=== PATIENT | female | born 1970 | race Caucasian/White ===

== ENCOUNTER 2017-02-08 17:10 | Emergency (ER) | payer MEDICAID ==
--- NOTE | 2017-02-08 17:48 | EKG REPORT ---
SEVERITY:- NORMAL ECG - SINUS RHYTHM : Confirmed by: Fritz Tobar 08-Feb-2017 17:48:01
--- NOTE | 2017-02-08 18:19 | ER Document Report ---
ED Medical Screen (RME) - General Chief Complaint: Shortness Of Breath Stated Complaint: SHORTNESS OF BREATH Time Seen by Provider: 02/08/17 18:13 Mode of Arrival: Ambulatory Information source: Patient TRAVEL OUTSIDE OF THE [place] IN LAST 30 DAYS: No - HPI Patient complains to provider of: Shortness of breath, dyspnea on exertion, congestion, chest pain Onset: Other - Saturday Quality of pain: Achy Severity: Moderate Pain Level: 3 Associated Symptoms: Body/muscle aches, Chest pain, Headache, Shortness of breath Exacerbated by: Denies Relieved by: Denies Notes: 02/08/17 18:18 Patient is a 46-year-old female with history of asthma COPD, restless leg syndrome, vertigo and depression anxiety, who presents to the emergency room complaining of headache, congestion, facial pain and swelling, dyspnea on exertion, patient denies a cough, no fever - Related Data Allergies/Adverse Reactions: clarithromycin [From Biaxin] Allergy (Mild, Verified 02/08/17 17:14) Generalized rash Penicillins Allergy (Mild, Verified 02/08/17 17:14) amoxicillin [From Augmentin] Adverse Reaction (Mild, Verified 02/08/17 17:14) clavulanic acid [From Augmentin] Adverse Reaction (Mild, Verified 02/08/17 17:14 ) Past Medical History - Social History Chew tobacco use (# tins/day): No Frequency of alcohol use: None Drug Abuse: None - Past Medical History Cardiac Medical History: Denies: Hx Coronary Artery Disease, Hx Heart Attack, Hx Hypertension Pulmonary Medical History: Reports: Hx Asthma, Hx Bronchitis, Hx COPD Denies: Hx Pneumonia Neurological Medical History: Denies: Hx Cerebrovascular Accident, Hx Seizures Endocrine Medical History: Reports: Hx Diabetes Mellitus Type 2 Renal/ Medical History: Denies: Hx Peritoneal Dialysis GI Medical History: Reports: Hx Gastroesophageal Reflux Disease Musculoskeltal Medical History: Denies Hx Arthritis, Reports Hx Musculoskeletal Trauma Psychiatric Medical History: Reports: Hx Anxiety, Hx Depression, Hx Post Traumatic Stress Disorder Past Surgical History: Reports: Hx Cardiac Catheterization - 01/17/2017, Hx Section, Hx Cholecystectomy, Hx Orthopedic Surgery - LEFT SHOULDER - Immunizations Immunizations up to date: No Hx Diphtheria, Pertussis, Tetanus Vaccination: Yes Physical Exam - Vital signs Vitals: Temp Pulse Resp BP Pulse Ox 97.4 F 89 22 H 147/76 H 94 02/08/17 17:15 02/08/17 17:15 02/08/17 17:15 02/08/17 17:15 02/08/17 17:15 Course - Vital Signs Vital signs: Temp Pulse Resp BP Pulse Ox 97.4 F 89 22 H 147/76 H 94 02/08/17 17:15 02/08/17 17:15 02/08/17 17:15 02/08/17 17:15 02/08/17 17:15
[2017-02-08 18:49] LABS: ABSOLUTE LYMPHOCYTES (AUTO) 1.1 10^3/uL (0.5-4.7); ABSOLUTE MONOCYTES (AUTO) 0.4 10^3/uL (0.1-1.4); ABSOLUTE NEUT (AUTO) 8.3 10^3/uL (1.7-8.2); BASOPHILS % (AUTO) 0.4 % (0-2); EOSINOPHILS % (AUTO) 0.2 % (0-6); HEMATOCRIT 40.7 % (36.0-47.0); HEMOGLOBIN 12.6 g/dL (12.0-15.5); HGB HCT DIFFERENCE -2.9; LYMPHOCYTES % (AUTO) 11.1 % (13-45); MEAN CORPUSCULAR HEMOGLOBIN 26.5 pg (27.0-33.4); MEAN CORPUSCULAR HGB CONC 30.9 g/dL (32.0-36.0); MEAN CORPUSCULAR VOLUME 86 fl (80-97); MONOCYTES % (AUTO) 4.2 % (3-13); RED BLOOD COUNT 4.75 10^6/uL (3.72-5.28); RED CELL DISTRIBUTION WIDTH 15.3 % (11.5-14.0); SEGMENTED NEUTROPHILS % (AUTO) 84.1 % (42-78); WHITE BLOOD COUNT 9.9 10^3/uL (4.0-10.5)
[2017-02-08 19:08] LABS: ALANINE AMINOTRANSFERASE 26 U/L (9-52); ALKALINE PHOSPHATASE 101 U/L (38-126); ANION GAP 12 (5-19); ASPARTATE AMINO TRANSFERASE 16 U/L (14-36); BILIRUBIN,DIRECT 0.3 mg/dL (0.0-0.4); BILIRUBIN,TOTAL 0.5 mg/dL (0.2-1.3); BLOOD UREA NITROGEN 12 mg/dL (7-20); CALCIUM 9.4 mg/dL (8.4-10.2); CARBON DIOXIDE 25 mmol/L (22-30); CHLORIDE 103 mmol/L (98-107); CREATINE KINASE 37 U/L (30-135); CREATININE RESULT 0.99 mg/dL (0.52-1.25); GLUCOSE 133 mg/dL (75-110); POTASSIUM 5.1 mmol/L (3.6-5.0); SODIUM 139.8 mmol/L (137-145); TOTAL PROTEIN 7.3 g/dL (6.3-8.2)
[2017-02-08 19:18] VITALS: BP 128/86
[2017-02-08 19:20] LABS: CREATINE KINASE MB < 0.22 ng/mL (<4.55); TROPONIN I < 0.012 ng/mL
[2017-02-08] MEDS ORDERED: LORATADINE 10 MG TABLET PO ONE (19:39)
--- NOTE | 2017-02-08 19:39 | ER Document Report ---
ED General - General Chief Complaint: Shortness Of Breath Stated Complaint: SHORTNESS OF BREATH Time Seen by Provider: 02/08/17 18:13 Mode of Arrival: Ambulatory Notes: Patient is a 46-year-old female with a past medical history of morbid obesity, COPD, hypertension, hyperlipidemia, who presents with several weeks of sinus pressure as well as intermittent shortness of breath. Notes that exertion worsens her shortness of breath. Resting improves her shortness of breath. Symptoms have been relatively unchanged in terms of her shortness of breath over the past several months. Her main reason for visiting the emergency department today is that she has had a severe, constant, throbbing pain to her bilateral sinuses for the past 1 week. Nothing improves or worsens the pain. She has not seen a primary care doctor regarding this concern. Notes a history of similar symptoms in the past secondary to viral illnesses. She denies any chest pain, vomiting, diaphoresis or syncope TRAVEL OUTSIDE OF THE [place] IN LAST 30 DAYS: No - Related Data Allergies/Adverse Reactions: clarithromycin [From Biaxin] Allergy (Mild, Verified 02/08/17 17:14) Generalized rash Penicillins Allergy (Mild, Verified 02/08/17 17:14) amoxicillin [From Augmentin] Adverse Reaction (Mild, Verified 02/08/17 17:14) clavulanic acid [From Augmentin] Adverse Reaction (Mild, Verified 02/08/17 17:14 ) Past Medical History - General Information source: Patient - Social History Smoking Status: Former Smoker Chew tobacco use (# tins/day): No Frequency of alcohol use: None Drug Abuse: None Lives with: Spouse/Significant other Family History: Arthritis, CAD, CVA, DM, Hyperlipidemia, Hypertension, Malignancy, Thyroid Disfunction Patient has suicidal ideation: No Patient has homicidal ideation: No - Past Medical History Cardiac Medical History: Denies: Hx Coronary Artery Disease, Hx Heart Attack, Hx Hypertension Pulmonary Medical History: Reports: Hx Asthma, Hx Bronchitis, Hx COPD Denies: Hx Pneumonia Neurological Medical History: Denies: Hx Cerebrovascular Accident, Hx Seizures Endocrine Medical History: Reports: Hx Diabetes Mellitus Type 2 Renal/ Medical History: Denies: Hx Peritoneal Dialysis GI Medical History: Reports: Hx Gastroesophageal Reflux Disease Musculoskeltal Medical History: Denies Hx Arthritis, Reports Hx Musculoskeletal Trauma Psychiatric Medical History: Reports: Hx Anxiety, Hx Depression, Hx Post Traumatic Stress Disorder Past Surgical History: Reports: Hx Cardiac Catheterization - 01/17/2017, Hx Section, Hx Cholecystectomy, Hx Orthopedic Surgery - LEFT SHOULDER - Immunizations Immunizations up to date: No Hx Diphtheria, Pertussis, Tetanus Vaccination: Yes Hx Pneumococcal Vaccination: 09/08/09 Review of Systems - Review of Systems Notes: Constitutional: Negative for fever. HENT: Negative for sore throat. Eyes: Negative for visual changes. Cardiovascular: Negative for chest pain. Respiratory: Positive for shortness of breath. Gastrointestinal: Negative for abdominal pain, vomiting or diarrhea. Genitourinary: Negative for dysuria. Musculoskeletal: Negative for back pain. Skin: Negative for rash. Neurological: Negative for headaches, weakness or numbness. 10 point ROS negative except as marked above and in HPI. Physical Exam - Vital signs Vitals: Temp Pulse Resp BP Pulse Ox 97.4 F 89 22 H 147/76 H 94 02/08/17 17:15 02/08/17 17:15 02/08/17 17:15 02/08/17 17:15 02/08/17 17:15 Interpretation: Normal Notes: PHYSICAL EXAMINATION: GENERAL: Well-appearing, well-nourished and in no acute distress. HEAD: Atraumatic, normocephalic. EYES: Pupils equal round and reactive to light, extraocular movements intact, sclera anicteric, conjunctiva are normal. ENT: nares patent, oropharynx clear without exudates. Moist mucous membranes. NECK: Normal range of motion, supple without lymphadenopathy LUNGS: Breath sounds clear to auscultation bilaterally and equal. No wheezes rales or rhonchi. HEART: Regular rate and rhythm without murmurs ABDOMEN: Soft, nontender, normoactive bowel sounds. No guarding, no rebound. No masses appreciated. EXTREMITIES: Normal range of motion, no pitting or edema. No cyanosis. NEUROLOGICAL: No focal neurological deficits. Moves all extremities spontaneously and on command. PSYCH: Normal mood, normal affect. SKIN: Warm, Dry, normal turgor, no rashes or lesions noted. Course - Re-evaluation Re-evalutation: 02/08/17 19:37 Patient presents with 1 week of sinus pressure and shortness of breath. And appears most consistent with likely allergic rhinitis with associated sinus discomfort. She denies any active shortness of breath at time of my assessment. No dyspnea, tachycardia or hypoxemia. Breath sounds are clear. Chest x-ray without evidence of pneumothorax or acute infiltrate. She denies any chest pain and just had a heart catheterization on 17 January which was noted to be completely normal. Troponin negative as is a BMP. Patient has tolerated oral intake without difficulty. Patient was not noted to be in distress at any point during their ER visit. At this time, based on the reassuring evaluation, I do not suspect an acute MN, pulmonary embolus, aortic dissection, acute intra- abdominal pathology, stroke, or sepsis. Will discharge with return precautions and follow-up recommendations. Verbal discharge instructions given a the bedside and opportunity for questions given. Medication warnings reviewed. Patient is in agreement with this plan and has verbalized understanding of return precautions and the need for primary care follow-up in the next 24-72 hours. - Vital Signs Vital signs: Temp Pulse Resp BP Pulse Ox 97.4 F 89 13 128/86 H 94 02/08/17 17:15 02/08/17 17:15 02/08/17 19:45 02/08/17 19:00 02/08/17 19:45 - Laboratory Result Diagrams: 02/08/17 18:40 02/08/17 18:40 Laboratory results interpreted by me: 02/08/17 02/08/17 18:40 18:40 MCH 26.5 L MCHC 30.9 L RDW 15.3 H Seg Neutrophils % 84.1 H Lymphocytes % 11.1 L Absolute Neutrophils 8.3 H Potassium 5.1 H Glucose 133 H - Diagnostic Test Radiology reviewed: Image reviewed, Reports reviewed Radiology results interpreted by me: 02/08/17 19:39 Chest x-ray: No acute infiltrate or pneumothorax - EKG Interpretation by Me Additional EKG results interpreted by me: 02/08/17 19:40 Sinus rhythm. Rate 82. No ST elevations or depressions. QTC is 453 Discharge - Discharge Clinical Impression: Super obese, Shortness of breath, Allergic sinusitis Condition: Good Disposition: HOME, SELF-CARE Additional Instructions: Please start taking loratadine 10 mg daily which will help with your sinus pressure. Your labs and chest x-ray today are normal. Please return to the emergency room immediately if you experience any concerning symptoms including high fevers, severe headache, chest pain, difficulty breathing, abdominal pain, slurred speech, numbness or weakness in your arms or legs, or any other symptom that concerns you. Referrals: REAGAN HARRIS MD [Primary Care Provider] - Follow up as needed
--- NOTE | 2017-02-08 19:41 | RADIOLOGY REPORT (SQ) ---
EXAM DESCRIPTION: CHEST PA/LAT COMPLETED DATE/TIME: 02/08/2017 7:24 pm REASON FOR STUDY: alvarenga COMPARISON: None. EXAM PARAMETERS: NUMBER OF VIEWS: two views TECHNIQUE: Digital Frontal and Lateral radiographic views of the chest acquired. RADIATION DOSE: NA LIMITATIONS: none FINDINGS: LUNGS AND PLEURA: No consolidation. Calcified granulomas are again noted. No pneumothora x. Small bilateral pleural effusions. MEDIASTINUM AND HILAR STRUCTURES: Stable. HEART AND VASCULAR STRUCTURES: Stable. BONES: No acute findings. HARDWARE: None in the chest. OTHER: No other significant finding. IMPRESSION: Small bilateral pleural effusions. No consolidation. TECHNICAL DOCUMENTATION: JOB ID: [id number] [employer]- All Rights Reserved
== END 2017-02-08 20:00 | disposition home or self-care (01) ==
LOC: ER 17:10
DX: E66.01 Morbid (severe) obesity due to excess calories (principal); R06.02 Shortness of breath; J30.9 Allergic rhinitis, unspecified; J44.9 Chronic obstructive pulmonary disease, unspecified; I10 Essential (primary) hypertension; E78.5 Hyperlipidemia, unspecified; E11.9 Type 2 diabetes mellitus without complications; K21.9 Gastro-esophageal reflux disease without esophagitis; Z88.0 Allergy status to penicillin; Z87.891 Personal history of nicotine dependence; Z90.49 Acquired absence of other specified parts of digestive tract
CPT/HCPCS: 93005; 99285; 36415; 82553; 82550; 85025; 80053; 84484; 83880; 71020; 93010; J3490

== ENCOUNTER 2017-05-05 21:03 | Emergency (ER) | payer MEDICAID ==
--- NOTE | 2017-05-05 22:37 | ER Document Report ---
ED General - General Chief Complaint: Back Injury Stated Complaint: ANKLE INJURY Time Seen by Provider: 05/05/17 22:22 Information source: Patient Notes: Patient is a 46-year-old female who states around 4 days ago she was walking outside her front door when she "twisted" her left ankle and knee and believe she strained her left back. She did not fall to the ground. She states her ankle was swollen and is slightly improved. She states most of her pain is actually to the distal Achilles. She denies however any heel pain. TRAVEL OUTSIDE OF THE [place] IN LAST 30 DAYS: No - HPI Onset: Other - See above Onset/Duration: Sudden Quality of pain: Achy Severity: Mild Pain Level: 1 Associated symptoms: Other - See above Exacerbated by: Movement, Walking Relieved by: Remaining still - Related Data Allergies/Adverse Reactions: clarithromycin [From Biaxin] Allergy (Mild, Verified 05/05/17 21:07) Generalized rash Penicillins Allergy (Mild, Verified 05/05/17 21:07) amoxicillin [From Augmentin] Adverse Reaction (Mild, Verified 05/05/17 21:07) clavulanic acid [From Augmentin] Adverse Reaction (Mild, Verified 05/05/17 21:07 ) Past Medical History - General Information source: Patient - Social History Smoking Status: Unknown if Ever Smoked Cigarette use (# per day): No Chew tobacco use (# tins/day): No Smoking Education Provided: No Frequency of alcohol use: None Family History: Arthritis, CAD, CVA, DM, Hyperlipidemia, Hypertension, Malignancy, Thyroid Disfunction Patient has suicidal ideation: No Patient has homicidal ideation: No - Past Medical History Cardiac Medical History: Reports: Hx Hypertension Denies: Hx Coronary Artery Disease, Hx Heart Attack Pulmonary Medical History: Reports: Hx Asthma, Hx COPD, Hx Pneumonia Denies: Hx Bronchitis Neurological Medical History: Denies: Hx Cerebrovascular Accident, Hx Seizures Endocrine Medical History: Reports: Hx Diabetes Mellitus Type 2 Renal/ Medical History: Denies: Hx Peritoneal Dialysis GI Medical History: Reports: Hx Gastroesophageal Reflux Disease Musculoskeltal Medical History: Denies Hx Arthritis, Reports Hx Musculoskeletal Trauma Psychiatric Medical History: Reports: Hx Anxiety, Hx Depression, Hx Post Traumatic Stress Disorder Past Surgical History: Reports: Hx Cardiac Catheterization - 01/17/2017, Hx Section, Hx Cholecystectomy, Hx Orthopedic Surgery - LEFT SHOULDER - Immunizations Immunizations up to date: No Hx Diphtheria, Pertussis, Tetanus Vaccination: Yes Hx Pneumococcal Vaccination: 09/08/09 Physical Exam - Vital signs Vitals: Temp Pulse Resp BP Pulse Ox 98.4 F 90 20 164/81 H 96 05/05/17 21:07 05/05/17 21:07 05/05/17 21:07 05/05/17 21:07 05/05/17 21:07 Notes: Reviewed vital signs and nursing note as charted by RN. CONSTITUTIONAL: Alert and oriented and responds appropriately to questions. Well -appearing; well-nourished HEAD: Normocephalic; atraumatic BACK: The back appears normal and is non-tender to palpation along the midline spine. Patient does have some left lower paraspinal muscular tenderness without any swelling or erythema. Patient is neurovascularly intact distally with 5 out of 5 bilateral leg strength with 2+ patellar reflexes. EXT: Patient has some mild tenderness and swelling to the lateral malleolus of the left ankle. There is no foot or heel tenderness or swelling. Patient also has some mild tenderness to left lateral knee without any obvious deformity, swelling, or erythema. Patient is able to fully flex and extend her knee. I had the patient lay on her stomach and squeezed her left heel and I do see some foot flexion. Patient does have some tenderness to the distal/mid aspect of the Achilles. There is no obvious palpable deformity. Course - Re-evaluation Re-evalutation: 05/05/17 22:34 Given the above history and physical examination or x-ray of the patient's left knee and ankle. If no apparent fractures are found, I will most likely splint the patient's left lower extremity with slight foot flexion as I am concerned about a possible partial Achilles tear. 05/05/17 23:45 X-rays of the ankle, and knee show no acute fractures. No change in examination. - Vital Signs Vital signs: Temp Pulse Resp BP Pulse Ox 98.4 F 90 20 164/81 H 96 05/05/17 21:07 05/05/17 21:07 05/05/17 21:07 05/05/17 21:07 05/05/17 21:07 Discharge - Discharge Clinical Impression: Left ankle strain Qualifiers: Encounter type: initial encounter Qualified Code(s): S96.912A - Strain of unspecified muscle and tendon at ankle and foot level, left foot, initial encounter Strain of left knee Qualifiers: Encounter type: initial encounter Qualified Code(s): S86.912A - Strain of unspecified muscle(s) and tendon(s) at lower leg level, left leg, initial encounter Injury of left Achilles tendon Qualifiers: Encounter type: initial encounter Qualified Code(s): S86.002A - Unspecified injury of left Achilles tendon, initial encounter Condition: Good Disposition: HOME, SELF-CARE Additional Instructions: Come back immediately with any increased pain, swelling, weakness or numbness, or discoloration. Please make sure that she follow-up with orthopedics as we have discussed and provided. Referrals: DELMY VARGHESE MD [ACTIVE STAFF] - Follow up as needed
--- NOTE | 2017-05-05 23:19 | RADIOLOGY REPORT (SQ) ---
EXAM DESCRIPTION: ANKLE LEFT COMPLETE COMPLETED DATE/TIME: 05/05/2017 11:10 pm REASON FOR STUDY: 10, fall/twisting knee and ankle COMPARISON: None. NUMBER OF VIEWS: Three views. TECHNIQUE: AP, lateral, and oblique radiographic images acquired of the left ankle. LIMITATIONS: None. FINDINGS: MINERALIZATION: Normal. BONES: No acute fracture or dislocation. No worrisome bone lesions. JOINTS: No effusions. SOFT TISSUES: Diffuse soft tissue swelling. No foreign body. OTHER: No other significant finding. IMPRESSION: No fracture identified. TECHNICAL DOCUMENTATION: JOB ID: [id number] [employer]- All Rights Reserved
--- NOTE | 2017-05-05 23:26 | RADIOLOGY REPORT (SQ) ---
EXAM DESCRIPTION: KNEE LEFT 4 VIEW COMPLETED DATE/TIME: 05/05/2017 11:10 pm REASON FOR STUDY: 10, fall/twisting knee and ankle COMPARISON: None. NUMBER OF VIEWS: Four views. TECHNIQUE: AP, lateral, and both oblique radiographic images acquired of the left knee. LIMITATIONS: None. FINDINGS: MINERALIZATION: Normal. BONES: No acute fracture or dislocation. No worrisome bone lesions. JOINT: No effusion. SOFT TISSUES: No soft tissue swelling. No radio-opaque foreign body. OTHER: No other significant finding. IMPRESSION: No fracture. TECHNICAL DOCUMENTATION: JOB ID: [id number]- All Rights Reserved
[2017-05-06 00:47] VITALS: BP 135/79
== END 2017-05-06 00:48 | disposition home or self-care (01) ==
LOC: ER 21:03
DX: S96.912A Strain of unspecified muscle and tendon at ankle and foot level, left foot, initial encounter (principal); S86.912A Strain of unspecified muscle(s) and tendon(s) at lower leg level, left leg, initial encounter; S86.002A Unspecified injury of left Achilles tendon, initial encounter; X50.0XXA Overexertion from strenuous movement or load, initial encounter; Y92.008 Other place in unspecified non-institutional (private) residence as the place of occurrence of the external cause; I10 Essential (primary) hypertension; E11.9 Type 2 diabetes mellitus without complications; K21.9 Gastro-esophageal reflux disease without esophagitis; Z88.0 Allergy status to penicillin; Z88.3 Allergy status to other anti-infective agents; Z90.49 Acquired absence of other specified parts of digestive tract
CPT/HCPCS: 99283

== ENCOUNTER 2017-05-22 18:36 | Emergency (ER) | payer MEDICAID ==
--- NOTE | 2017-05-22 19:02 | ER Document Report ---
ED Medical Screen (RME) - General Chief Complaint: Shortness Of Breath Stated Complaint: SHORTNESS OF BREATH Time Seen by Provider: 05/22/17 19:00 Notes: Patient states that she also has cough congestion and shortness of breath. She states that she has been diagnosed with sinusitis and pneumonia within the last month. She has been on a Z-Malick and azithromycin and both times has felt that she has gotten better but now symptoms have returned. TRAVEL OUTSIDE OF THE [place] IN LAST 30 DAYS: No - Related Data Allergies/Adverse Reactions: clarithromycin [From Biaxin] Allergy (Mild, Verified 05/22/17 18:40) Generalized rash Penicillins Allergy (Mild, Verified 05/22/17 18:40) amoxicillin [From Augmentin] Adverse Reaction (Mild, Verified 05/22/17 18:40) clavulanic acid [From Augmentin] Adverse Reaction (Mild, Verified 05/22/17 18:40 ) Past Medical History - Social History Chew tobacco use (# tins/day): No Frequency of alcohol use: None Drug Abuse: None - Past Medical History Cardiac Medical History: Reports: Hx Hypertension Denies: Hx Coronary Artery Disease, Hx Heart Attack Pulmonary Medical History: Reports: Hx Asthma, Hx COPD, Hx Pneumonia Denies: Hx Bronchitis Neurological Medical History: Denies: Hx Cerebrovascular Accident, Hx Seizures Endocrine Medical History: Reports: Hx Diabetes Mellitus Type 2 Renal/ Medical History: Denies: Hx Peritoneal Dialysis GI Medical History: Reports: Hx Gastroesophageal Reflux Disease Musculoskeltal Medical History: Denies Hx Arthritis, Reports Hx Musculoskeletal Trauma Psychiatric Medical History: Reports: Hx Anxiety, Hx Depression, Hx Post Traumatic Stress Disorder Past Surgical History: Reports: Hx Cardiac Catheterization - 01/17/2017, Hx Section, Hx Cholecystectomy, Hx Orthopedic Surgery - LEFT SHOULDER - Immunizations Immunizations up to date: No Hx Diphtheria, Pertussis, Tetanus Vaccination: Yes Physical Exam - Vital signs Vitals: Temp Pulse Resp BP Pulse Ox 97.8 F 97 22 H 151/92 H 95 05/22/17 18:42 05/22/17 18:42 05/22/17 18:42 05/22/17 18:42 05/22/17 18:42 Course - Vital Signs Vital signs: Temp Pulse Resp BP Pulse Ox 97.8 F 97 22 H 151/92 H 95 05/22/17 18:42 05/22/17 18:42 05/22/17 18:42 05/22/17 18:42 05/22/17 18:42
--- NOTE | 2017-05-22 19:24 | RADIOLOGY REPORT (SQ) ---
EXAM DESCRIPTION: CHEST PA/LAT COMPLETED DATE/TIME: 05/22/2017 7:16 pm REASON FOR STUDY: cough/congestion COMPARISON: 02/08/2017 EXAM PARAMETERS: NUMBER OF VIEWS: two views TECHNIQUE: Digital Frontal and Lateral radiographic views of the chest acquired. RADIATION DOSE: NA LIMITATIONS: none FINDINGS: LUNGS AND PLEURA: No opacities, masses or pneumothorax. No pleural effusion. MEDIASTINUM AND HILAR STRUCTURES: No masses or contour abnormalities. HEART AND VASCULAR STRUCTURES: Heart normal size. No evidence for failure. BONES: No acute findings. HARDWARE: None in the chest. OTHER: No other significant finding. IMPRESSION: NO SIGNIFICANT RADIOGRAPHIC FINDING IN THE CHEST. TECHNICAL DOCUMENTATION: JOB ID: [id number] [employer]- All Rights Reserved
[2017-05-22 20:00] LABS: ABSOLUTE BASOPHILS # (AUTO) 0.1 10^3/uL (0.0-0.2); ABSOLUTE LYMPHOCYTES (AUTO) 1.1 10^3/uL (0.5-4.7); ABSOLUTE MONOCYTES (AUTO) 0.4 10^3/uL (0.1-1.4); BASOPHILS % (AUTO) 0.6 % (0-2); EOSINOPHILS % (AUTO) 0.2 % (0-6); HEMATOCRIT 41.2 % (36.0-47.0); HEMOGLOBIN 13.4 g/dL (12.0-15.5); LYMPHOCYTES % (AUTO) 9.3 % (13-45); MEAN CORPUSCULAR HEMOGLOBIN 26.8 pg (27.0-33.4); MEAN CORPUSCULAR HGB CONC 32.6 g/dL (32.0-36.0); MEAN CORPUSCULAR VOLUME 82 fl (80-97); MONOCYTES % (AUTO) 3.2 % (3-13); RED BLOOD COUNT 5.01 10^6/uL (3.72-5.28); SEGMENTED NEUTROPHILS % (AUTO) 86.7 % (42-78); WHITE BLOOD COUNT 11.5 10^3/uL (4.0-10.5)
[2017-05-22 20:07] LABS: APPEARANCE,URINE SLIGHTLY-CLOUDY; BILIRUBIN,URINE NEGATIVE (NEGATIVE); GLUCOSE, URINE >=500 mg/dL (NEGATIVE); KETONES,URINE NEGATIVE (NEGATIVE); LEUKOCYTE ESTERASE,URINE NEGATIVE (NEGATIVE); NITRITE,URINE NEGATIVE (NEGATIVE); PROTEIN,URINE NEGATIVE (NEGATIVE); URINE SPECIFIC GRAVITY 1.014; UROBILINOGEN,URINE NEGATIVE mg/dL (<2.0)
[2017-05-22 21:06] LABS: ALANINE AMINOTRANSFERASE 32 U/L (9-52); ALBUMIN 3.9 g/dL (3.5-5.0); ALKALINE PHOSPHATASE 91 U/L (38-126); ANION GAP 11 (5-19); ASPARTATE AMINO TRANSFERASE 15 U/L (14-36); BILIRUBIN,DIRECT 0.3 mg/dL (0.0-0.4); BILIRUBIN,TOTAL 0.4 mg/dL (0.2-1.3); BLOOD UREA NITROGEN 9 mg/dL (7-20); CALCIUM 9.5 mg/dL (8.4-10.2); CARBON DIOXIDE 24 mmol/L (22-30); CHLORIDE 102 mmol/L (98-107); CREATININE RESULT 0.83 mg/dL (0.52-1.25); GLUCOSE 134 mg/dL (75-110); POTASSIUM 4.8 mmol/L (3.6-5.0); TOTAL PROTEIN 6.9 g/dL (6.3-8.2)
[2017-05-22] MEDS ORDERED: CIPROFLOXACIN HCL 500 MG TABLET PO ONE (21:53)
--- NOTE | 2017-05-22 21:57 | ER Document Report ---
ED General - General Chief Complaint: Shortness Of Breath Stated Complaint: SHORTNESS OF BREATH Time Seen by Provider: 05/22/17 19:00 Notes: Patient is a 47-year-old female with a past medical history of morbid obesity, sleep apnea, COPD who presents with concerns of difficulty breathing over the last 3 days. She states that she has had bilateral maxillary sinus pressure that is a dull, constant, throbbing pain. States this feels similar when she has had bacterial sinusitis in the past. She has not seen a primary care doctor regarding these concerns. She has been taking all prescribed medications as directed. Denies any tobacco abuse. Her shortness of breath per her report is more "in my chest" that it is based in her sinuses. She however notes that she has not had any improvement with her normal home nebulizer treatments. She has had similar symptoms multiple times in the past including recently earlier this month. She has not any fever or constitutional symptoms. TRAVEL OUTSIDE OF THE [place] IN LAST 30 DAYS: No - Related Data Allergies/Adverse Reactions: clarithromycin [From Biaxin] Allergy (Mild, Verified 05/22/17 18:40) Generalized rash Penicillins Allergy (Mild, Verified 05/22/17 18:40) amoxicillin [From Augmentin] Adverse Reaction (Mild, Verified 05/22/17 18:40) clavulanic acid [From Augmentin] Adverse Reaction (Mild, Verified 05/22/17 18:40 ) Past Medical History - General Information source: Patient - Social History Smoking Status: Former Smoker Chew tobacco use (# tins/day): No Frequency of alcohol use: None Drug Abuse: None Lives with: Family Family History: Arthritis, CAD, CVA, DM, Hyperlipidemia, Hypertension, Malignancy, Thyroid Disfunction - Past Medical History Cardiac Medical History: Reports: Hx Hypertension Denies: Hx Coronary Artery Disease, Hx Heart Attack Pulmonary Medical History: Reports: Hx Asthma, Hx COPD, Hx Pneumonia Denies: Hx Bronchitis Neurological Medical History: Denies: Hx Cerebrovascular Accident, Hx Seizures Endocrine Medical History: Reports: Hx Diabetes Mellitus Type 2 Renal/ Medical History: Denies: Hx Peritoneal Dialysis GI Medical History: Reports: Hx Gastroesophageal Reflux Disease Musculoskeltal Medical History: Denies Hx Arthritis, Reports Hx Musculoskeletal Trauma Psychiatric Medical History: Reports: Hx Anxiety, Hx Depression, Hx Post Traumatic Stress Disorder Past Surgical History: Reports: Hx Cardiac Catheterization - 01/17/2017, Hx Section, Hx Cholecystectomy, Hx Orthopedic Surgery - LEFT SHOULDER - Immunizations Immunizations up to date: No Hx Diphtheria, Pertussis, Tetanus Vaccination: Yes Hx Pneumococcal Vaccination: 09/08/09 Review of Systems - Review of Systems Notes: Constitutional: Negative for fever. HENT: Negative for sore throat. Positive for bilateral maxillary sinus pressure Eyes: Negative for visual changes. Cardiovascular: Negative for chest pain. Respiratory: Positive for shortness of breath. Gastrointestinal: Negative for abdominal pain, vomiting or diarrhea. Genitourinary: Negative for dysuria. Musculoskeletal: Negative for back pain. Skin: Negative for rash. Neurological: Negative for headaches, weakness or numbness. 10 point ROS negative except as marked above and in HPI. Physical Exam - Vital signs Vitals: Temp Pulse Resp BP Pulse Ox 97.8 F 97 22 H 151/92 H 95 05/22/17 18:42 05/22/17 18:42 05/22/17 18:42 05/22/17 18:42 05/22/17 18:42 Interpretation: Hypertensive Notes: PHYSICAL EXAMINATION: GENERAL: Morbidly obese female. Well-appearing, well-nourished and in no acute distress. HEAD: Atraumatic, normocephalic. EYES: Pupils equal round and reactive to light, extraocular movements intact, sclera anicteric, conjunctiva are normal. ENT: nares patent, oropharynx clear without exudates. Moist mucous membranes. Pain on palpation of the bilateral maxillary sinuses. NECK: Normal range of motion, supple without lymphadenopathy LUNGS: Breath sounds clear to auscultation bilaterally and equal. No wheezes rales or rhonchi. HEART: Regular rate and rhythm without murmurs ABDOMEN: Morbidly obese abdomen. Soft, nontender, normoactive bowel sounds. No guarding, no rebound. No masses appreciated. EXTREMITIES: Normal range of motion, no pitting or edema. No cyanosis. NEUROLOGICAL: No focal neurological deficits. Moves all extremities spontaneously and on command. PSYCH: Normal mood, normal affect. SKIN: Warm, Dry, normal turgor, no rashes or lesions noted. Course - Re-evaluation Re-evalutation: 05/22/17 21:54 Patient presents today complaining of bilateral sinus pressure, difficulty breathing, but is in no apparent distress. She is not tachypneic, hypoxic or tachycardic on assessment. She is afebrile. Breath sounds are clear bilaterally. No obvious wheezing or evidence of an acute COPD exacerbation. She does have pain on palpation of the bilateral maxillary sinuses similar to prior presentations. She is scheduled to follow-up with her primary care doctor in the next coming several days. I do not believe the patient requires admission to the hospital. Exact etiology of presentation is likely viral in origin and I have again explained to the patient that this may not respond to antibiotics but again patient is requesting repeat dosing of oral antibiotics. Will proceed per patient's request and asked that she continue to follow-up with her bone drier who typically proceeds in this manner. At this time will discharge with return precautions and follow-up recommendations. Verbal discharge instructions given a the bedside and opportunity for questions given. Medication warnings reviewed. Patient is in agreement with this plan and has verbalized understanding of return precautions and the need for primary care follow-up in the next 24-72 hours. - Vital Signs Vital signs: Temp Pulse Resp BP Pulse Ox 97.6 F 75 19 133/83 H 95 05/22/17 22:41 05/22/17 22:41 05/22/17 22:41 05/22/17 22:41 05/22/17 22:41 - Laboratory Result Diagrams: 05/22/17 19:20 05/22/17 20:25 Laboratory results interpreted by me: 05/22/17 05/22/17 05/22/17 19:20 19:20 20:25 WBC 11.5 H MCH 26.8 L RDW 16.0 H Seg Neutrophils % 86.7 H Lymphocytes % 9.3 L Absolute Neutrophils 10.0 H Glucose 134 H Urine Glucose (UA) >=500 H - Diagnostic Test Radiology reviewed: Image reviewed, Reports reviewed Radiology results interpreted by me: 05/22/17 21:55 Chest x-ray: No acute infiltrate Discharge - Discharge Clinical Impression: Wheezing Sinusitis Qualifiers: Sinusitis location: maxillary Chronicity: acute Recurrence: recurrent Qualified Code(s): J01.01 - Acute recurrent maxillary sinusitis Condition: Good Disposition: HOME, SELF-CARE Additional Instructions: Please follow-up with your primary doctor at your earliest ability. Return if you develop worsening shortness of breath, fever, pass out, develop chest pain, or have any other symptoms that are worrisome to you. Prescriptions: Ciprofloxacin HCl [Cipro 500 mg Tablet] 500 mg PO BID #10 tablet
[2017-05-22 22:42] VITALS: BP 133/83
== END 2017-05-22 22:42 | disposition home or self-care (01) ==
LOC: ER 18:36
DX: J44.9 Chronic obstructive pulmonary disease, unspecified (principal); J01.01 Acute recurrent maxillary sinusitis; I10 Essential (primary) hypertension; Z68.43 Body mass index [BMI] 50.0-59.9, adult; E66.01 Morbid (severe) obesity due to excess calories; Z87.891 Personal history of nicotine dependence; Z88.1 Allergy status to other antibiotic agents; Z88.0 Allergy status to penicillin; Z87.01 Personal history of pneumonia (recurrent)
CPT/HCPCS: 99285; 36415; 85025; 80053; 81001; 71020; J3490

== ENCOUNTER 2017-07-12 17:15 | Emergency (ER) | payer MEDICAID ==
[2017-07-12] MEDS ORDERED: KETOROLAC TROMETHAMINE INJ/PF 30 MG/1 ML SDV IV ONE (19:27)
--- NOTE | 2017-07-12 19:28 | ER Document Report ---
ED Medical Screen (RME) - General TRAVEL OUTSIDE OF THE [place] IN LAST 30 DAYS: No <CHYNA WADDELL - Last Filed: 07/12/17 19:56> <KEITH MOHAN - Last Filed: 07/12/17 20:57> - General Chief Complaint: Abdominal Pain Stated Complaint: ABDOMINAL PAIN Time Seen by Provider: 07/12/17 19:18 Notes: Patient is a 47 year old female with a history of cholecystectomy presents to the emergency department complaining of abdominal pain onset today 15:30. Patinet states she woke up from a nap and started having lower abdominal pain. Patient states she went to the bathroom to have a bowel movement and the pain worsened. Patient describes the pain as "stabbing". Patient states that she feels "clammy" and has diaphoresis. Patient has recently started Metformin. (CHYNA WADDELL) - Related Data Allergies/Adverse Reactions: clarithromycin [From Biaxin] Allergy (Mild, Verified 05/22/17 18:40) Generalized rash Penicillins Allergy (Mild, Verified 05/22/17 18:40) amoxicillin [From Augmentin] Adverse Reaction (Mild, Verified 05/22/17 18:40) clavulanic acid [From Augmentin] Adverse Reaction (Mild, Verified 05/22/17 18:40 ) Past Medical History - General Information source: Patient - Social History Cigarette use (# per day): No Chew tobacco use (# tins/day): No - Past Medical History Cardiac Medical History: Reports: Hx Hypertension Denies: Hx Coronary Artery Disease, Hx Heart Attack Pulmonary Medical History: Reports: Hx Asthma, Hx COPD, Hx Pneumonia Denies: Hx Bronchitis Neurological Medical History: Denies: Hx Cerebrovascular Accident, Hx Seizures Endocrine Medical History: Reports: Hx Diabetes Mellitus Type 2 Renal/ Medical History: Denies: Hx Peritoneal Dialysis GI Medical History: Reports: Hx Gastroesophageal Reflux Disease Musculoskeltal Medical History: Denies Hx Arthritis, Reports Hx Musculoskeletal Trauma Psychiatric Medical History: Reports: Hx Anxiety, Hx Depression, Hx Post Traumatic Stress Disorder Past Surgical History: Reports: Hx Cardiac Catheterization - 01/17/2017, Hx Section, Hx Cholecystectomy, Hx Orthopedic Surgery - LEFT SHOULDER - Immunizations Immunizations up to date: No Hx Diphtheria, Pertussis, Tetanus Vaccination: Yes History of Influenza Vaccine for 05/2017 - 10/2017 Season: No <NADIRACHYNA BRADY - Last Filed: 07/12/17 19:56> Review of Systems - Review of Systems Constitutional: See HPI, Diaphoresis EENT: No symptoms reported Cardiovascular: No symptoms reported Respiratory: No symptoms reported Gastrointestinal: See HPI, Abdominal pain, Nausea Genitourinary: No symptoms reported Female Genitourinary: No symptoms reported Musculoskeletal: No symptoms reported Skin: No symptoms reported Hematologic/Lymphatic: No symptoms reported Neurological/Psychological: No symptoms reported -: Yes All other systems reviewed and negative <NADIRANAEMARTIN - Last Filed: 07/12/17 19:56> Physical Exam - General General appearance: Appears well, Alert In distress: None - HEENT Head: Normocephalic, Atraumatic Pupils: PERRL - Respiratory Respiratory status: No respiratory distress Chest status: Nontender Breath sounds: Normal - Cardiovascular Rhythm: Regular Heart sounds: Normal auscultation Murmur: No Friction rub: No Gallop: None auscultated - Abdominal Inspection: Obese Distension: No distension Bowel sounds: Normal Tenderness: Tender - LLQ tender to palpation Organomegaly: No organomegaly - Extremities General upper extremity: Normal ROM General lower extremity: Normal ROM - Psychological Associated symptoms: Normal affect, Normal mood - Skin Skin Temperature: Warm Skin Moisture: Dry <NADIRANAEMARTIN - Last Filed: 07/12/17 19:56> - Vital signs Vitals: Temp Pulse Resp BP Pulse Ox 97.9 F 89 20 130/64 H 95 07/12/17 17:19 07/12/17 17:19 07/12/17 17:19 07/12/17 17:19 07/12/17 17:19 Course - Laboratory Result Diagrams: 07/12/17 19:44 07/12/17 19:44 <CHYNA WADDELL - Last Filed: 07/12/17 19:56> - Laboratory Result Diagrams: 07/12/17 19:44 07/12/17 19:44 <KEITH MOHAN - Last Filed: 07/12/17 20:57> - Vital Signs Vital signs: Temp Pulse Resp BP Pulse Ox 97.9 F 89 20 130/64 H 95 07/12/17 17:19 07/12/17 17:19 07/12/17 17:19 07/12/17 17:19 07/12/17 17:19 - Laboratory Laboratory results interpreted by me: 07/12/17 07/12/17 19:44 19:44 WBC 15.4 H MCH 26.4 L RDW 16.5 H Seg Neutrophils % 80.6 H Lymphocytes % 12.6 L Absolute Neutrophils 12.4 H Urine Protein 100 H Urine Glucose (UA) 50 H Urine Blood LARGE H Ur Leukocyte Esterase SMALL H Scribe Documentation - Scribe Written by Scribe:: Uzma Gordon, 07/12/2017 20:05 acting as scribe for :: Liliana <CHYNA WADDELL - Last Filed: 07/12/17 19:56>
[2017-07-12 20:17] LABS: ABSOLUTE BASOPHILS # (AUTO) 0.1 10^3/uL (0.0-0.2); ABSOLUTE EOSINOPHILS # (AUTO) 0.1 10^3/uL (0.0-0.6); ABSOLUTE LYMPHOCYTES (AUTO) 1.9 10^3/uL (0.5-4.7); ABSOLUTE MONOCYTES (AUTO) 0.8 10^3/uL (0.1-1.4); ABSOLUTE NEUT (AUTO) 12.4 10^3/uL (1.7-8.2); BASOPHILS % (AUTO) 0.4 % (0-2); EOSINOPHILS % (AUTO) 0.9 % (0-6); HEMATOCRIT 38.7 % (36.0-47.0); HEMOGLOBIN 12.4 g/dL (12.0-15.5); HGB HCT DIFFERENCE -1.5; LYMPHOCYTES % (AUTO) 12.6 % (13-45); MEAN CORPUSCULAR HEMOGLOBIN 26.4 pg (27.0-33.4); MEAN CORPUSCULAR VOLUME 83 fl (80-97); MONOCYTES % (AUTO) 5.5 % (3-13); RED BLOOD COUNT 4.69 10^6/uL (3.72-5.28); RED CELL DISTRIBUTION WIDTH 16.5 % (11.5-14.0); SEGMENTED NEUTROPHILS % (AUTO) 80.6 % (42-78); WHITE BLOOD COUNT 15.4 10^3/uL (4.0-10.5)
[2017-07-12 20:29] LABS: ALANINE AMINOTRANSFERASE 37 U/L (9-52); ALBUMIN 4.2 g/dL (3.5-5.0); ALKALINE PHOSPHATASE 90 U/L (38-126); ANION GAP 18 (5-19); APPEARANCE,URINE SLIGHTLY-CLOUDY; ASPARTATE AMINO TRANSFERASE 16 U/L (14-36); BILIRUBIN,DIRECT 0.3 mg/dL (0.0-0.4); BILIRUBIN,TOTAL 0.4 mg/dL (0.2-1.3); BILIRUBIN,URINE NEGATIVE (NEGATIVE); BLOOD UREA NITROGEN 13 mg/dL (7-20); CALCIUM 9.6 mg/dL (8.4-10.2); CARBON DIOXIDE 22 mmol/L (22-30); CHLORIDE 105 mmol/L (98-107); CREATININE RESULT 0.88 mg/dL (0.52-1.25); GLUCOSE 102 mg/dL (75-110); GLUCOSE, URINE 50 mg/dL (NEGATIVE); KETONES,URINE NEGATIVE (NEGATIVE); LEUKOCYTE ESTERASE,URINE SMALL (NEGATIVE); NITRITE,URINE NEGATIVE (NEGATIVE); PROTEIN,URINE 100 mg/dL (NEGATIVE); SODIUM 144.6 mmol/L (137-145); URINE SPECIFIC GRAVITY 1.028; UROBILINOGEN,URINE NEGATIVE mg/dL (<2.0)
--- NOTE | 2017-07-12 21:08 | RADIOLOGY REPORT (SQ) ---
EXAM DESCRIPTION: CT ABD/PELVIS WITH IV ONLY COMPLETED DATE/TIME: 07/12/2017 8:51 pm REASON FOR STUDY: LLQ abd pain, r/o diverticulitis COMPARISON: None. TECHNIQUE: CT scan of the abdomen and pelvis performed using helical scanning technique with dynamic intravenous contrast injection. No oral contrast. Images reviewed with lung, soft tissue, and bone windows. Reconstructed coronal and sagittal MPR images reviewed. Delayed images for evaluation of the urinary system also acquired. All images stored on PACS. All CT scanners at this facility use dose modulation, iterative reconstruction, and/or weight based d osing when appropriate to reduce radiation dose to as low as reasonably achievable (ALARA). [facility]: Dose Right [facility]: CareDose [facility]: Dose Right [facility]: Teradose 4D [facility]: Sanghvi CONTRAST TYPE AND DOSE: contrast/concentration: Isovue 370.00 mg/ml; Total Contrast Delivered: 100.0 ml; Total Saline Delivered: 72.0 ml RENAL FUNCTION: None required. The patient is less than 50 years old. RADIATION DOSE: Up-to-date CT equipment and radiation dose reduction techniques were employed. CTDIv ol: 21.1 mGy. DLP: 2109 mGy-cm.. LIMITATIONS: None. FINDINGS: LOWER CHEST: No significant findings. No nodules or infiltrates. LIVER: Diffuse hepatic steatosis. No masses. No dilated ducts. SPLEEN: Normal size. No focal lesions. PANCREAS: No masses. No significant calcifications. No adjacent inflammation or peripancreatic fluid collections. Pancreatic duct not dilated. GALLBLADDER: Surgically absent. ADRENAL GLANDS: No significant masses or asymmetry. RIGHT KIDNEY AND URETER: No solid masses. No significant calcifications. No hydronephrosis or hyd roureter. LEFT KIDNEY AND URETER: No solid masses. No significant calcifications. No hydronephrosis or hydr oureter. AORTA AND VESSELS: No aneurysm. No dissection. Renal arteries, SMA, celiac without stenosis. RETROPERITONEUM: No retroperitoneal adenopathy, hemorrhage or masses. BOWEL AND PERITONEAL CAVITY: No masses or inflammatory changes. No free fluid or peritoneal masses. APPENDIX: Normal. PELVIS: No mass. No free fluid. Normal bladder. ABDOMINAL WALL: No masses. No hernias. BONES: No significant or acute findings. OTHER: No other significant finding. IMPRESSION: NO ACUTE INFLAMMATORY CHANGE IDENTIFIED WITHIN THE ABDOMEN OR PELVIS. HEPATIC STEATOSIS. TECHNICAL DOCUMENTATION: JOB ID: [id number] Quality ID # [id number]: Final reports with documentation of one or more dose reduction techniques (e.g., Au tomated exposure control, adjustment of the mA and/or kV according to patient size, use of iterative reconstruction technique) 2010 [employer]- All Rights Reserved
[2017-07-12] MEDS ORDERED: CEFTRIAXONE 1 GM/D5W RTU 1 GM/50 ML RTUPB IV ONE (21:23)
[2017-07-12] MEDS ORDERED: NORMAL SALINE 1000 ML 1,000 ML IV ONE (21:23)
--- NOTE | 2017-07-12 21:28 | ER Document Report ---
ED General - General Chief Complaint: Abdominal Pain Stated Complaint: ABDOMINAL PAIN Time Seen by Provider: 07/12/17 19:18 Notes: Patient is a 47-year-old female who presents with approximately 5 hours of left flank and left lower quadrant abdominal pain. States that the pain was abrupt in onset and has worsened since that time. She does describe a severe, constant , throbbing pain to the left flank. Moving or touching area worsens the pain. She has not tried anything for improvement of the pain. She denies a history of similar symptoms in the past. She does have a surgical history of a cholecystectomy but no additional abdominal surgeries in the past. She denies any fever or constitutional symptoms. She has not seen a primary doctor regarding today's concerns. TRAVEL OUTSIDE OF THE [place] IN LAST 30 DAYS: No - Related Data Allergies/Adverse Reactions: clarithromycin [From Biaxin] Allergy (Mild, Verified 05/22/17 18:40) Generalized rash Penicillins Allergy (Mild, Verified 05/22/17 18:40) amoxicillin [From Augmentin] Adverse Reaction (Mild, Verified 05/22/17 18:40) clavulanic acid [From Augmentin] Adverse Reaction (Mild, Verified 05/22/17 18:40 ) Past Medical History - General Information source: Patient - Social History Smoking Status: Never Smoker Cigarette use (# per day): No Chew tobacco use (# tins/day): No Frequency of alcohol use: None Drug Abuse: None Lives with: Family Family History: Arthritis, CAD, CVA, DM, Hyperlipidemia, Hypertension, Malignancy, Thyroid Disfunction Patient has suicidal ideation: No Patient has homicidal ideation: No - Past Medical History Cardiac Medical History: Reports: Hx Hypertension Denies: Hx Coronary Artery Disease, Hx Heart Attack Pulmonary Medical History: Reports: Hx Asthma, Hx COPD, Hx Pneumonia Denies: Hx Bronchitis Neurological Medical History: Denies: Hx Cerebrovascular Accident, Hx Seizures Endocrine Medical History: Reports: Hx Diabetes Mellitus Type 2 Renal/ Medical History: Denies: Hx Peritoneal Dialysis GI Medical History: Reports: Hx Gastroesophageal Reflux Disease Musculoskeltal Medical History: Denies Hx Arthritis, Reports Hx Musculoskeletal Trauma Psychiatric Medical History: Reports: Hx Anxiety, Hx Depression, Hx Post Traumatic Stress Disorder Past Surgical History: Reports: Hx Cardiac Catheterization - 01/17/2017, Hx Section, Hx Cholecystectomy, Hx Orthopedic Surgery - LEFT SHOULDER - Immunizations Immunizations up to date: No Hx Diphtheria, Pertussis, Tetanus Vaccination: Yes Hx Pneumococcal Vaccination: 09/08/09 Review of Systems - Review of Systems Notes: Constitutional: Negative for fever. HENT: Negative for sore throat. Eyes: Negative for visual changes. Cardiovascular: Negative for chest pain. Respiratory: Negative for shortness of breath. Gastrointestinal: Positive for abdominal pain nausea Genitourinary: Positive for dysuria. Musculoskeletal: Negative for back pain. Skin: Negative for rash. Neurological: Negative for headaches, weakness or numbness. 10 point ROS negative except as marked above and in HPI. Physical Exam - Vital signs Vitals: Temp Pulse Resp BP Pulse Ox 97.9 F 89 20 130/64 H 95 07/12/17 17:19 07/12/17 17:19 07/12/17 17:19 07/12/17 17:19 07/12/17 17:19 Interpretation: Normal Notes: PHYSICAL EXAMINATION: GENERAL: Well-appearing, well-nourished and in no acute distress. HEAD: Atraumatic, normocephalic. EYES: Pupils equal round and reactive to light, extraocular movements intact, sclera anicteric, conjunctiva are normal. ENT: nares patent, oropharynx clear without exudates. Moderately dry mucous membranes. NECK: Normal range of motion, supple without lymphadenopathy LUNGS: Breath sounds clear to auscultation bilaterally and equal. No wheezes rales or rhonchi. HEART: Regular rate and rhythm without murmurs ABDOMEN: Soft, focal tenderness in the left lower quadrant without rebound or guarding. Exquisite tenderness on palpation of the left CVA. EXTREMITIES: Normal range of motion, no pitting or edema. No cyanosis. NEUROLOGICAL: No focal neurological deficits. Moves all extremities spontaneously and on command. PSYCH: Normal mood, normal affect. SKIN: Warm, Dry, normal turgor, no rashes or lesions noted. Course - Re-evaluation Re-evalutation: 07/12/17 21:25 Patient presents with acute onset of left lower abdominal pain as well as left flank pain, found to have pyelonephritis on her urinalysis. CT scan does not demonstrate any evidence of an acute nephrolithiasis suggest an impacted or infected stone. No evidence of acute diverticulitis. The remainder of her abdominal exam is actually quite benign. Laboratories do show a leukocytosis but no evidence of acute kidney injury. She has been able to tolerate oral intake here in the emergency department. She did have resolution of her pain after receiving 15 mg of ketorolac. A liter of IV fluids was administered and she was also given a dose of 1 g of ceftriaxone. She will will be sent home on a 7 day course of cephalexin. A urine culture has been sent. At this time will discharge with return precautions and follow-up recommendations. Verbal discharge instructions given a the bedside and opportunity for questions given. Medication warnings reviewed. Patient is in agreement with this plan and has verbalized understanding of return precautions and the need for primary care follow-up in the next 24-72 hours. - Vital Signs Vital signs: Temp Pulse Resp BP Pulse Ox 98.5 F 94 14 118/62 97 07/12/17 23:35 07/12/17 23:35 07/12/17 23:35 07/12/17 23:35 07/12/17 23:35 - Laboratory Result Diagrams: 07/12/17 19:44 07/12/17 19:44 Laboratory results interpreted by me: 07/12/17 07/12/17 19:44 19:44 WBC 15.4 H MCH 26.4 L RDW 16.5 H Seg Neutrophils % 80.6 H Lymphocytes % 12.6 L Absolute Neutrophils 12.4 H Urine Protein 100 H Urine Glucose (UA) 50 H Urine Blood LARGE H Ur Leukocyte Esterase SMALL H - Diagnostic Test Radiology reviewed: Reports reviewed Discharge - Discharge Clinical Impression: Pyelonephritis, Lower abdominal pain Condition: Good Disposition: HOME, SELF-CARE Additional Instructions: You have been diagnosed with a condition called pyelonephritis which is an infection involving your kidneys and bladder. You have been given a dose of antibiotics here in the emergency department to help begin to treat this infection. Your also being sent home on antibiotics. Please start taking these later on today when you fill the prescription. Complete the course even if you feel better. Please return if you have persistent vomiting, pass out, have worsening pain, become unable to tolerate fluids, or have any other symptoms that are concerning to you. Please follow-up with your primary care physician in the next 24-48 hours. Prescriptions: Cephalexin Monohydrate [Keflex 500 mg Capsule] 500 mg PO Q6H 7 Days capsule Referrals: NATE JASON MD [Primary Care Provider] - Follow up in 3-5 days
[2017-07-12 23:48] VITALS: BP 118/62
== END 2017-07-12 23:40 | disposition home or self-care (01) ==
LOC: ER 17:15
DX: N12 Tubulo-interstitial nephritis, not specified as acute or chronic (principal); R10.32 Left lower quadrant pain
CPT/HCPCS: 99284; 96375; 96365; 36415; 87086; 85025; 80053; 81001; 74177; J1885; J7030; J0696

== ENCOUNTER → 2017-11-20 | Outpatient (CLI) | payer MEDICARE, MEDICAID ==
[2017-11-20 11:33] LABS: ABSOLUTE BASOPHILS # (AUTO) 0.1 10^3/uL (0.0-0.2); ABSOLUTE EOSINOPHILS # (AUTO) 0.2 10^3/uL (0.0-0.6); ABSOLUTE LYMPHOCYTES (AUTO) 1.3 10^3/uL (0.5-4.7); ABSOLUTE MONOCYTES (AUTO) 0.5 10^3/uL (0.1-1.4); ABSOLUTE NEUT (AUTO) 6.7 10^3/uL (1.7-8.2); BASOPHILS % (AUTO) 0.7 % (0-2); EOSINOPHILS % (AUTO) 1.8 % (0-6); HEMATOCRIT 36.8 % (36.0-47.0); HEMOGLOBIN 11.8 g/dL (12.0-15.5); LYMPHOCYTES % (AUTO) 14.5 % (13-45); MEAN CORPUSCULAR HEMOGLOBIN 25.7 pg (27.0-33.4); MEAN CORPUSCULAR HGB CONC 31.9 g/dL (32.0-36.0); MEAN CORPUSCULAR VOLUME 81 fl (80-97); PLATELET COUNT 339 10^3/uL (150-450); RED BLOOD COUNT 4.57 10^6/uL (3.72-5.28); RED CELL DISTRIBUTION WIDTH 16.2 % (11.5-14.0); TOTAL CELLS COUNTED % (AUTO) 100 %; WHITE BLOOD COUNT 8.8 10^3/uL (4.0-10.5)
--- NOTE | 2017-11-20 11:33 | RADIOLOGY REPORT (SQ) ---
EXAM DESCRIPTION: CHEST PA/LATERAL COMPLETED DATE/TIME: 11/20/2017 11:00 am REASON FOR STUDY: DYSPNEA, UNSPECIFIED COMPARISON: 05/22/2017 EXAM PARAMETERS: NUMBER OF VIEWS: two views TECHNIQUE: Digital Frontal and Lateral radiographic views of the chest acquired. RADIATION DOSE: NA LIMITATIONS: none FINDINGS: LUNGS AND PLEURA: Calcified granuloma right lung. Linear scarring right lower lobe. No e ffusions. MEDIASTINUM AND HILAR STRUCTURES: No masses or contour abnormalities. HEART AND VASCULAR STRUCTURES: Heart normal size. No evidence for failure. BONES: No acute findings. HARDWARE: None in the chest. OTHER: No other significant finding. IMPRESSION: NO SIGNIFICANT RADIOGRAPHIC FINDING IN THE CHEST. TECHNICAL DOCUMENTATION: JOB ID: [id number] [employer]- All Rights Reserved Reading location - IP/workstation name: [email or web address]
== END ==
LOC: OD 10:28
PROVIDERS: ATTEND Internal Medicine Pulmonary Disease
DX: R06.00 Dyspnea, unspecified (principal)
CPT/HCPCS: 36415; 71046; 85025; 87070; 87205

== ENCOUNTER 2017-12-06 05:52 | Emergency (ER) | payer MEDICARE, MEDICAID ==
[2017-12-06] MEDS ORDERED: METOCLOPRAMIDE HCL INJ/PF 10 MG/2 ML SDV IV ONE (06:20)
--- NOTE | 2017-12-06 07:42 | ER Document Report ---
ED General - General Chief Complaint: Nausea/Vomiting Stated Complaint: NAUSEA/VOMITING Time Seen by Provider: 12/06/17 06:14 Mode of Arrival: Medic Information source: Patient, [facility] Records Notes: 47-year-old female history of asthma presents with complaints nausea vomiting diarrhea since yesterday. Patient has had 5 episodes of vomiting for episodes of diarrhea. Patient notes niece had similar episodes a few days prior. She denies any fevers or chills TRAVEL OUTSIDE OF THE [place] IN LAST 30 DAYS: No - HPI Onset: Yesterday Onset/Duration: Sudden Quality of pain: Cramping Severity: Mild Pain Level: 1 Associated symptoms: Diarrhea, Nausea, Vomiting Exacerbated by: Denies Relieved by: Denies Similar symptoms previously: No Recently seen / treated by doctor: No - Related Data Allergies/Adverse Reactions: clarithromycin [From Biaxin] Allergy (Mild, Verified 05/22/17 18:40) Generalized rash Penicillins Allergy (Mild, Verified 05/22/17 18:40) amoxicillin [From Augmentin] Adverse Reaction (Mild, Verified 05/22/17 18:40) clavulanic acid [From Augmentin] Adverse Reaction (Mild, Verified 05/22/17 18:40 ) Past Medical History - Social History Smoking Status: Never Smoker Cigarette use (# per day): No Chew tobacco use (# tins/day): No Smoking Education Provided: No Family History: Arthritis, CAD, CVA, DM, Hyperlipidemia, Hypertension, Malignancy, Thyroid Disfunction - Past Medical History Cardiac Medical History: Reports: Hx Hypertension Denies: Hx Coronary Artery Disease, Hx Heart Attack Pulmonary Medical History: Reports: Hx Asthma, Hx COPD, Hx Pneumonia Denies: Hx Bronchitis Neurological Medical History: Denies: Hx Cerebrovascular Accident, Hx Seizures Endocrine Medical History: Reports: Hx Diabetes Mellitus Type 2 Renal/ Medical History: Denies: Hx Peritoneal Dialysis GI Medical History: Reports: Hx Gastroesophageal Reflux Disease Musculoskeltal Medical History: Denies Hx Arthritis, Reports Hx Musculoskeletal Trauma Psychiatric Medical History: Reports: Hx Anxiety, Hx Depression, Hx Post Traumatic Stress Disorder Past Surgical History: Reports: Hx Cardiac Catheterization - 01/17/2017, Hx Section, Hx Cholecystectomy, Hx Orthopedic Surgery - LEFT SHOULDER - Immunizations Immunizations up to date: No Hx Diphtheria, Pertussis, Tetanus Vaccination: Yes Hx Pneumococcal Vaccination: 09/08/09 Review of Systems - Review of Systems Notes: REVIEW OF SYSTEMS: CONSTITUTIONAL : Denies fever, chills, or sweats. Denies recent illness. EENT: Denies eye, ear, throat, or mouth pain or symptoms. Denies nasal or sinus congestion or discharge. Denies throat, tongue, or mouth swelling or difficulty swallowing. CARDIOVASCULAR: Denies chest pain. Denies palpitations or racing or irregular heart beat. Denies ankle edema. RESPIRATORY: Denies cough, cold, or chest congestion. Denies shortness of breath, difficulty breathing, or wheezing. GASTROINTESTINAL: Admits nausea vomiting diarrhea GENITOURINARY: Denies difficulty urinating, painful urination, burning, frequency, blood in urine, or discharge. FEMALE GENITOURINARY: Denies vaginal bleeding, heavy or abnormal periods, irregular periods. Denies vaginal discharge or odor. MUSCULOSKELETAL: Denies back or neck pain or stiffness. Denies joint pain or swelling. SKIN: Denies rash, lesions or sores. HEMATOLOGIC : Denies easy bruising or bleeding. LYMPHATIC: Denies swollen, enlarged glands. NEUROLOGICAL: Denies confusion or altered mental status. Denies passing out or loss of consciousness. Denies dizziness or lightheadedness. Denies headache. Denies weakness or paralysis or loss of use of either side. Denies problems with gait or speech. Denies sensory loss, numbness, or tingling. Denies seizures. PSYCHIATRIC: Denies anxiety or stress. Denies depression, suicidal ideation, or homicidal ideation. ALL OTHER SYSTEMS REVIEWED AND NEGATIVE. PHYSICAL EXAMINATION: GENERAL: Obese female no acute distress HEAD: Atraumatic, normocephalic. EYES: Pupils equal round and reactive to light, extraocular movements intact, conjunctiva are normal. ENT: Nares patent, oropharynx clear without exudates. Moist mucous membranes. NECK: Normal range of motion, supple without lymphadenopathy LUNGS: Breath sounds clear to auscultation bilaterally and equal. No wheezes rales or rhonchi. HEART: Regular rate and rhythm without murmurs ABDOMEN: Soft, nontender, nondistended abdomen. No guarding, no rebound. No masses appreciated. Female : deferred Musculoskeletal: Normal range of motion, no pitting or edema. No cyanosis. NEUROLOGICAL: Cranial nerves grossly intact. Normal speech, normal gait. Normal sensory, motor exams PSYCH: Normal mood, normal affect. SKIN: Warm, Dry, normal turgor, no rashes or lesions noted. Dictation was performed using [employer] voice recognition software Physical Exam - Vital signs Vitals: Resp BP Pulse Ox 15 144/93 H 94 12/06/17 06:01 12/06/17 06:01 12/06/17 06:01 Course - Re-evaluation Re-evalutation: 12/06/17 07:42 pt noted to be satting 89%-90% on ra, while sleeping. pt appears to have sleep apnea, hx of astham, will place on o2. 12/06/17 09:50 Patient's lab work noted no significant abnormality patient feels better notes she was anxious also and her heart rate improved significantly after anxiety was improved. Patient will be discharged home with nausea control is otherwise stable for discharge After performing a Medical Screening Examination, I estimate there is LOW risk for ACUTE APPENDICITIS, BOWEL OBSTRUCTION, ACUTE CHOLECYSTITIS, PERFORATED DIVERTICULITIS, INCARCERATED HERNIA, PANCREATITIS, PELVIC INFLAMMATORY DISEASE, PERFORATED ULCER, ECTOPIC , or TUBO-OVARIAN ABSCESS, thus I consider the discharge disposition reasonable. Also, there is no evidence or peritonitis , sepsis, or toxicity. I have reevaluated this patient multiple times and no significant life threatening changes are noted. The patient and I have discussed the diagnosis and risks, and we agree with discharging home with close follow-up with the understanding that symptoms and presentations can change. We also discussed returning to the Emergency Department immediately if new or worsening symptoms occur. We have discussed the symptoms which are most concerning (e.g., bloody stool, fever, changing or worsening pain, vomiting) that necessitate immediate return. - Vital Signs Vital signs: Temp Pulse Resp BP Pulse Ox 24 H 144/92 H 93 12/06/17 08:00 12/06/17 08:00 12/06/17 08:00 - Laboratory Result Diagrams: 12/06/17 07:30 12/06/17 07:30 Laboratory results interpreted by me: 12/06/17 12/06/17 12/06/17 07:30 07:30 08:45 WBC 11.7 H Hgb 11.8 L MCH 25.3 L MCHC 31.4 L RDW 16.9 H Seg Neutrophils % 88.2 H Lymphocytes % 5.8 L Absolute Neutrophils 10.3 H BUN 21 H Urine Glucose (UA) 50 H Discharge - Discharge Clinical Impression: Nausea vomiting and diarrhea Asthma exacerbation Qualifiers: Asthma severity: mild Asthma persistence: intermittent Qualified Code(s): J45.21 - Mild intermittent asthma with (acute) exacerbation Sleep apnea Qualifiers: Sleep apnea type: unspecified type Qualified Code(s): G47.30 - Sleep apnea, unspecified Condition: Stable Disposition: HOME, SELF-CARE Instructions: Vomiting ([facility]) Prescriptions: Metoclopramide HCl [Reglan 10 mg Tablet] 1 - 2 tab PO Q6 #25 tablet Referrals: NATE JASON MD [Primary Care Provider] - Follow up tomorrow
[2017-12-06 07:44] LABS: ABSOLUTE EOSINOPHILS # (AUTO) 0.1 10^3/uL (0.0-0.6); ABSOLUTE MONOCYTES (AUTO) 0.6 10^3/uL (0.1-1.4); ABSOLUTE NEUT (AUTO) 10.3 10^3/uL (1.7-8.2); TOTAL CELLS COUNTED % (AUTO) 100 %; WHITE BLOOD COUNT 11.7 10^3/uL (4.0-10.5)
[2017-12-06 07:48] LABS: ABSOLUTE LYMPHOCYTES (AUTO) 0.7 10^3/uL (0.5-4.7); BASOPHILS % (AUTO) 0.3 % (0-2); EOSINOPHILS % (AUTO) 0.5 % (0-6); HEMATOCRIT 37.7 % (36.0-47.0); HEMOGLOBIN 11.8 g/dL (12.0-15.5); LYMPHOCYTES % (AUTO) 5.8 % (13-45); MEAN CORPUSCULAR HEMOGLOBIN 25.3 pg (27.0-33.4); MEAN CORPUSCULAR HGB CONC 31.4 g/dL (32.0-36.0); MEAN CORPUSCULAR VOLUME 81 fl (80-97); MONOCYTES % (AUTO) 5.2 % (3-13); PLATELET COUNT 385 10^3/uL (150-450); RED BLOOD COUNT 4.67 10^6/uL (3.72-5.28); RED CELL DISTRIBUTION WIDTH 16.9 % (11.5-14.0); SEGMENTED NEUTROPHILS % (AUTO) 88.2 % (42-78)
[2017-12-06 08:00] LABS: ALANINE AMINOTRANSFERASE 40 U/L (9-52); ALBUMIN 3.7 g/dL (3.5-5.0); ALKALINE PHOSPHATASE 79 U/L (38-126); ANION GAP 10 (5-19); ASPARTATE AMINO TRANSFERASE 24 U/L (14-36); BILIRUBIN,DIRECT 0.1 mg/dL (0.0-0.4); BILIRUBIN,TOTAL 0.5 mg/dL (0.2-1.3); BLOOD UREA NITROGEN 21 mg/dL (7-20); CALCIUM 8.8 mg/dL (8.4-10.2); CARBON DIOXIDE 30 mmol/L (22-30); CHLORIDE 101 mmol/L (98-107); CREATINE KINASE 69 U/L (30-135); GLUCOSE 96 mg/dL (75-110); POTASSIUM 4.4 mmol/L (3.6-5.0); SODIUM 140.6 mmol/L (137-145); TOTAL PROTEIN 6.3 g/dL (6.3-8.2)
[2017-12-06 08:12] LABS: TROPONIN I < 0.012 ng/mL
[2017-12-06] MEDS ORDERED: LORAZEPAM INJ 2 MG/1 ML VIAL IV ONE (09:06)
[2017-12-06 09:08] LABS: APPEARANCE,URINE CLEAR; BILIRUBIN,URINE NEGATIVE (NEGATIVE); COLOR,URINE YELLOW; GLUCOSE, URINE 50 mg/dL (NEGATIVE); KETONES,URINE NEGATIVE (NEGATIVE); LEUKOCYTE ESTERASE,URINE NEGATIVE (NEGATIVE); NITRITE,URINE NEGATIVE (NEGATIVE); PROTEIN,URINE NEGATIVE (NEGATIVE); URINE SPECIFIC GRAVITY 1.026; UROBILINOGEN,URINE NEGATIVE mg/dL (<2.0)
[2017-12-06] MEDS: NORMAL SALINE 1000 ML 1,000 ML IV PRN ×2 (09:13→09:14)
[2017-12-06 11:02] VITALS: BP 141/88
== END 2017-12-06 11:11 | disposition home or self-care (01) ==
LOC: ER 05:52
DX: R11.2 Nausea with vomiting, unspecified (principal); R19.7 Diarrhea, unspecified; J45.21 Mild intermittent asthma with (acute) exacerbation; G47.30 Sleep apnea, unspecified; E66.9 Obesity, unspecified; F41.9 Anxiety disorder, unspecified; Z68.43 Body mass index [BMI] 50.0-59.9, adult; Z90.49 Acquired absence of other specified parts of digestive tract
CPT/HCPCS: 99284; 96361; 96374; 96375; 36415; 82553; 82550; 85025; 80053; 81001; 84484; J2765; J2060; J7030

== ENCOUNTER 2017-12-20 06:33 | Emergency (ER) | payer MEDICARE, MEDICAID ==
--- NOTE | 2017-12-20 07:14 | ER Document Report ---
ED General - General Chief Complaint: Difficulty Swallowing Stated Complaint: DIFFICULTY SWALLOWING, SORE THROAT Time Seen by Provider: 12/20/17 07:14 TRAVEL OUTSIDE OF THE [place] IN LAST 30 DAYS: No - HPI Notes: 37-year-old obese female with a history of COPD with 44% lung function, PTSD, anxiety, seasonal allergies presents today with complaints of difficulty swallowing, sore throat with a cough that started 1 day ago. Patient denies any drooling or trismus. States she ate fried chicken gives her last night without any difficulty. She did a DuoNeb prior to coming to the emergency room without full relief. Patient has a long-standing history of taking prednisone due to her extensive COPD. Patient denies any difficulty with breathing. Denies fevers, chills, chest pain,palpitations, shortness of breath, dyspnea, nausea, vomiting, diarrhea, abdominal pain, hematuria,blurred vision, double vision, loss of vision, speech changes, LH, dizziness, syncope, headaches, wheezing, URI, neck pain, weakness, bowel or bladder dysfunction, saddle anesthesia, numbness or tingling in bilateral upper or lower extremities equally , muscle paralysis, weakness in bilateral upper or lower extremities equally or rash. Denies IV drug use. - Related Data Allergies/Adverse Reactions: clarithromycin [From Biaxin] Allergy (Mild, Verified 05/22/17 18:40) Generalized rash Penicillins Allergy (Mild, Verified 05/22/17 18:40) amoxicillin [From Augmentin] Adverse Reaction (Mild, Verified 05/22/17 18:40) clavulanic acid [From Augmentin] Adverse Reaction (Mild, Verified 05/22/17 18:40 ) Past Medical History - General Information source: Patient - Social History Smoking Status: Former Smoker Family History: Arthritis, CAD, CVA, DM, Hyperlipidemia, Hypertension, Malignancy, Thyroid Disfunction - Past Medical History Cardiac Medical History: Reports: Hx Hypertension Denies: Hx Coronary Artery Disease, Hx Heart Attack Pulmonary Medical History: Reports: Hx Asthma, Hx COPD, Hx Pneumonia Denies: Hx Bronchitis Neurological Medical History: Denies: Hx Cerebrovascular Accident, Hx Seizures Endocrine Medical History: Reports: Hx Diabetes Mellitus Type 2 Renal/ Medical History: Denies: Hx Peritoneal Dialysis GI Medical History: Reports: Hx Gastroesophageal Reflux Disease Musculoskeltal Medical History: Denies Hx Arthritis, Reports Hx Musculoskeletal Trauma Psychiatric Medical History: Reports: Hx Anxiety, Hx Depression, Hx Post Traumatic Stress Disorder Past Surgical History: Reports: Hx Cardiac Catheterization - 01/17/2017, Hx Section, Hx Cholecystectomy, Hx Orthopedic Surgery - LEFT SHOULDER - Immunizations Immunizations up to date: No Hx Diphtheria, Pertussis, Tetanus Vaccination: Yes Hx Pneumococcal Vaccination: 09/08/09 Review of Systems - Review of Systems Constitutional: No symptoms reported EENT: See HPI Cardiovascular: No symptoms reported Respiratory: See HPI Gastrointestinal: No symptoms reported Genitourinary: No symptoms reported Female Genitourinary: No symptoms reported Musculoskeletal: No symptoms reported Skin: No symptoms reported Hematologic/Lymphatic: No symptoms reported Neurological/Psychological: No symptoms reported Physical Exam - Vital signs Vitals: Temp Pulse Resp BP Pulse Ox 97.6 F 102 H 18 172/87 H 100 12/20/17 06:37 12/20/17 06:37 12/20/17 06:37 12/20/17 06:37 12/20/17 06:37 - Notes Notes: PHYSICAL EXAMINATION: GENERAL: Well-appearing, well-nourished and in no acute distress. HEAD: Atraumatic, normocephalic. EYES: Pupils equal round and reactive to light, extraocular movements intact, conjunctiva are normal. ENT: Nares patent, noted edema on up for soft palate, uvula midline. oropharynx erythema without exudates. Moist mucous membranes. NECK: Normal range of motion, supple without lymphadenopathy LUNGS: Diffuse wheezing in all lobes. Breathing treatment given with partial relief of wheezing. No retractions or accessory muscle usage. HEART: Regular rate and rhythm without murmurs ABDOMEN: Soft, nontender, nondistended abdomen. No guarding, no rebound. No masses appreciated. Female : deferred Musculoskeletal: Normal range of motion, no pitting or edema. No cyanosis. NEUROLOGICAL: Cranial nerves grossly intact. Normal speech, normal gait. Normal sensory, motor exams PSYCH: Normal mood, normal affect. SKIN: Warm, Dry, normal turgor, no rashes or lesions noted. Course - Re-evaluation Re-evalutation: 12/20/17 17:16 39-year-old female with a past medical history of COPD presents with difficulty swallowing that started yesterday. Patient is afebrile. When patient initially came in she appeared to be hypertensive, manual blood pressures were done patient had a blood pressure of 150's systolically over 80s diastolically with her heart rate being 91. I suspect that the cuff was too tight when triage blood pressure was done. Patient does not have a history of hypertension. Patient given DuoNeb as well as Solu-Medrol 125 IM, which did help with her wheezing. Patient complains she still having difficulty swallowing, her speech is clear and she is in no distress. Glucagon given which patient states she felt did help with her swallowing a little bit. This x -ray showed atelectasis in left lung base. rapid strep is negative. on revaluation, Pt did not is not in any distress, she is afebrile breathing without issues, she is satting at 96%. Patient is of a large habitus with a wide neck, unable to determine if she has any distinct cervical lymphadenopathy to size of her neck, unable to determine if she has a peritonsillar abscess, though her uvula is midline but concern with patient stating that she has difficulty swallowing without relief from racemic epi, Solu-Medrol, and glucagon. patient states Dr. Oconnor, CT radiologist called and stated he did not see any abscess, he did see swelling of the upper palate some narrowing of the pharynx however no epiglottitis no narrowing of the epiglottis seen on CT soft tissue neck with contrast. CBC with a leukocytosis of 15.4 and a lactic of 2.9, patient given 750 of Levaquin concern of developing pneumonia, patient states that she is allergic to penicillins with hives, initially adamantly refused to take azithromycin because it causes her rash (does not get hives). After discussing different kind of rashes, patient stated that she has fungal rash which she then explained was a yeast infection. Discussed with patient that I will prescribe her Diflucan and that she is able to take azithromycin to cover for gram-positive and gram-negative aerobic organisms as well as mycolpasma pneumonia. After explained that I will prescribe her Diflucan and the importance of taking the antibiotic, patient agreed to take prescription of Z-Malick. Discussed with patient we will send her home with prednisone 20 mg 3 times daily for 5 days, Tessalon Perles, Ventolin inhaler, and EpiPen and Z- Malick. discussed patient with Dr. Merary Levi, ER attending, regarding pertinent laboratory, clinical and diagnostic findings, he agreed with plan of care to send patient home since she is in no distress, maintaining a pulse ox of 96% on room air, talking and drinking without any issues. Will have patient follow-up with primary care provider in 24 hours. At this time will discharge with return precautions and follow-up recommendations. Verbal discharge instructions given a the bedside and opportunity for questions given. Medication warnings reviewed. Patient is in agreement with this plan and has verbalized understanding of return precautions and the need for primary care follow-up in the next 24-72 hours. After performing a Medical Screening Examination, I estimate there is LOW risk for ACUTE CORONARY SYNDROME, PULMONARY EMBOLI, RESPIRATORY FAILURE, SEPSIS OR MENINGITIS, thus I consider the discharge disposition reasonable. I have reevaluated this patient multiple times and no significant life threatening changes are noted. The patient and I have discussed the diagnosis and risks, and we agree with discharging home with close follow-up. We also discussed returning to the Emergency Department immediately if new or worsening symptoms occur. We have discussed the symptoms which are most concerning (e.g., changing or worsening pain, trouble swallowing or breathing, neck stiffness, fever) that necessitate immediate return. After performing a Medical Screening Examination, I estimate there is LOW risk for a DEEP SPACE INFECTION (e.g., BRANDON'S ANGINA OR RETROPHARYNGEAL ABSCESS), MENINGITIS, INTRACRANIAL HEMORRHAGE, or AIRWAY COMPROMISE, thus I consider the discharge disposition reasonable. Also, there is no evidence or peritonitis, sepsis, or toxicity. I have reevaluated this patient multiple times and no significant life threatening changes are noted. The patient and I have discussed the diagnosis and risks, and we agree with discharging home with close follow-up with the understanding that symptoms and presentations can change. We also discussed returning to the Emergency Department immediately if new or worsening symptoms occur. We have discussed the symptoms which are most concerning (e.g., changing or worsening pain, trouble swallowing or breathing, neck stiffness or fever) that necessitate immediate return. 12/20/17 17:55 - Vital Signs Vital signs: Temp Pulse Resp BP Pulse Ox 98.1 F 94 14 132/65 H 98 12/20/17 13:09 12/20/17 13:09 12/20/17 15:00 12/20/17 13:09 12/20/17 15:00 - Laboratory Result Diagrams: 12/20/17 12:10 12/20/17 12:10 Laboratory results interpreted by me: 12/20/17 12/20/17 12/20/17 12:10 12:10 12:12 WBC 15.4 H Hgb 11.4 L Hct 35.8 L MCH 25.6 L MCHC 31.8 L RDW 17.4 H Seg Neutrophils % 92.4 H Lymphocytes % 5.2 L Monocytes % 1.8 L Absolute Neutrophils 14.2 H Glucose 120 H POC Glucose 131 H Lactic Acid Urine Glucose (UA) 12/20/17 12/20/17 13:50 13:50 WBC Hgb Hct MCH MCHC RDW Seg Neutrophils % Lymphocytes % Monocytes % Absolute Neutrophils Glucose POC Glucose Lactic Acid 2.9 H Urine Glucose (UA) >=500 H Discharge - Discharge Clinical Impression: COPD exacerbation, Acute bacterial pharyngitis, COPD exacerbation, Acute bacterial bronchitis Condition: Good Disposition: HOME, SELF-CARE Instructions: Bronchitis ([facility]), Bronchitis With Bronchospasm (Wheezing) ([facility]), Chronic Obstructive Lung Disease ([facility]), Tonsillitis ([facility]) Prescriptions: Benzonatate [Tessalon Perles 100 mg Capsule] 100 mg PO Q8HP PRN #20 capsule PRN Reason: Albuterol Sulfate [Ventolin Hfa] 1 - 2 puff IH Q4 PRN #1 hfa.aer.ad PRN Reason: Azithromycin 250 mg PO DAILY #6 tablet Epinephrine [Epipen Jr 0.15 mg/0.3 mL AutoInject] 1 ea IM ASDIR PRN #1 autoinjector PRN Reason: Prednisone [Deltasone 20 mg Tablet] 3 tab PO DAILY 5 Days #15 tablet Referrals: NATE JASON MD [Primary Care Provider] - Follow up tomorrow
[2017-12-20] MEDS ORDERED: IPRATROPIUM/ALBUTEROL 0.5-2.5 MG/3 ML AMPUL NEB ONE (07:46)
[2017-12-20] MEDS ORDERED: METHYLPREDNISOLONE INJ 125 MG/2 ML SDV IM ONE (07:46)
--- NOTE | 2017-12-20 08:26 | RADIOLOGY REPORT (SQ) ---
EXAM DESCRIPTION: CHEST 2 VIEWS COMPLETED DATE/TIME: 12/20/2017 7:59 am REASON FOR STUDY: cough with difficulty swallowing COMPARISON: 04/21/2017 and 01/11/2016 EXAM PARAMETERS: NUMBER OF VIEWS: two views TECHNIQUE: Digital Frontal and Lateral radiographic views of the chest acquired. RADIATION DOSE: NA LIMITATIONS: none FINDINGS: LUNGS AND PLEURA: Linear atelectatic marking is seen at the left lung base. Stable calcif ied granuloma right mid lung field. MEDIASTINUM AND HILAR STRUCTURES: No masses or contour abnormalities. HEART AND VASCULAR STRUCTURES: Heart normal size. No evidence for failure. BONES: No acute findings. HARDWARE: None in the chest. OTHER: No other significant finding. IMPRESSION: The lungs are clear except for linear marking at the left lung base. TECHNICAL DOCUMENTATION: JOB ID: [id number] [employer]- All Rights Reserved Reading location - IP/workstation name: [email or web address]
[2017-12-20] MEDS ORDERED: GLUCAGON,HUMAN RECOMB 1 MG INJ IV ONE (09:04)
[2017-12-20] MEDS ORDERED: RACEPINEPHRINE HCL 2.25% NEB 0.5 ML AMPUL NEB ONE (09:30)
--- NOTE | 2017-12-20 11:32 | RADIOLOGY REPORT (SQ) ---
EXAM DESCRIPTION: CT SOFT TISSUE NECK WITH COMPLETED DATE/TIME: 12/20/2017 11:04 am REASON FOR STUDY: difficulty swallowing, swelling in throat, +ST COMPARISON: None. TECHNIQUE: Post IV contrasted scanning from skull base through lung apices with review of bone, soft tissue and lung windows. Reconstructed coronal and sagittal MPR images reviewed. All images stored on PACS. All CT scanners at this facility use dose modulation, iterative reconstruction, and/or weight based d osing when appropriate to reduce radiation dose to as low as reasonably achievable (ALARA). [facility]: Dose Right [facility]: CareDose [facility]: Dose Right [facility]: Teradose 4D [facility]: ODIN CONTRAST TYPE AND DOSE: contrast/concentration: Isovue 370.00 mg/ml; Total Contrast Delivered: 75.0 ml; Total Saline Delivered: 55.0 ml RENAL FUNCTION: GFR > 60. RADIATION DOSE: CT Rad equipment meets quality standard of care and radiation dose reduction techniq ues were employed. CTDIvol: 19.1 mGy. DLP: 651 mGy-cm. . LIMITATIONS: None. FINDINGS: SKULL BASE: Intact. MAJOR SALIVARY GLANDS: No solid or cystic masses. No inflammatory changes. LYMPHADENOPATHY: No adenopathy. MUCOSAL MASSES OR ASYMMETRY: No mucosal mass. There is swelling of the soft palate and tonsillar pil lars with narrowing of the posterior nasopharynx. No evidence of abscess. Epiglottis is normal. LARYNX/CORDS: No abnormal findings. VASCULAR STRUCTURES: The major vessels are patent. LUNG APICES: Clear. BONES: Intact. THYROID: Normal size. No masses. PARANASAL SINUSES: Clear. OTHER: No other significant finding. IMPRESSION: Pharyngitis/tonsillitis without evidence of abscess. TECHNICAL DOCUMENTATION: JOB ID: [id number] Quality ID # [id number]: Final reports with documentation of one or more dose reduction techniques (e.g., Au tomated exposure control, adjustment of the mA and/or kV according to patient size, use of iterative reconstruction technique) 2010 [employer]- All Rights Reserved Reading location - IP/workstation name: [email or web address]
[2017-12-20 12:53] LABS: ABSOLUTE EOSINOPHILS # (AUTO) 0.1 10^3/uL (0.0-0.6); ABSOLUTE LYMPHOCYTES (AUTO) 0.8 10^3/uL (0.5-4.7); ABSOLUTE MONOCYTES (AUTO) 0.3 10^3/uL (0.1-1.4); ABSOLUTE NEUT (AUTO) 14.2 10^3/uL (1.7-8.2); BASOPHILS % (AUTO) 0.2 % (0-2); EOSINOPHILS % (AUTO) 0.4 % (0-6); HEMATOCRIT 35.8 % (36.0-47.0); HEMOGLOBIN 11.4 g/dL (12.0-15.5); LYMPHOCYTES % (AUTO) 5.2 % (13-45); MEAN CORPUSCULAR HEMOGLOBIN 25.6 pg (27.0-33.4); MEAN CORPUSCULAR HGB CONC 31.8 g/dL (32.0-36.0); MEAN CORPUSCULAR VOLUME 81 fl (80-97); MONOCYTES % (AUTO) 1.8 % (3-13); PLATELET COUNT 398 10^3/uL (150-450); RED BLOOD COUNT 4.45 10^6/uL (3.72-5.28); RED CELL DISTRIBUTION WIDTH 17.4 % (11.5-14.0); SEGMENTED NEUTROPHILS % (AUTO) 92.4 % (42-78); TOTAL CELLS COUNTED % (AUTO) 100 %; WHITE BLOOD COUNT 15.4 10^3/uL (4.0-10.5)
[2017-12-20] MEDS ORDERED: LEVOFLOXACIN 750 MG/D5W RTU 750 MG/150 ML RTUPB IV ONE (12:58)
[2017-12-20 13:12] LABS: ALANINE AMINOTRANSFERASE 40 U/L (9-52); ALBUMIN 3.9 g/dL (3.5-5.0); ALKALINE PHOSPHATASE 95 U/L (38-126); ANION GAP 15 (5-19); ASPARTATE AMINO TRANSFERASE 21 U/L (14-36); BILIRUBIN,DIRECT 0.2 mg/dL (0.0-0.4); BILIRUBIN,TOTAL 0.2 mg/dL (0.2-1.3); BLOOD UREA NITROGEN 15 mg/dL (7-20); CALCIUM 9.1 mg/dL (8.4-10.2); CARBON DIOXIDE 24 mmol/L (22-30); CHLORIDE 102 mmol/L (98-107); GLUCOSE 120 mg/dL (75-110); POTASSIUM 4.6 mmol/L (3.6-5.0); SODIUM 140.9 mmol/L (137-145); TOTAL PROTEIN 6.8 g/dL (6.3-8.2)
[2017-12-20 13:14] VITALS: BP 132/65
[2017-12-20 14:20] LABS: APPEARANCE,URINE SLIGHTLY-CLOUDY; BILIRUBIN,URINE NEGATIVE (NEGATIVE); COLOR,URINE YELLOW; GLUCOSE, URINE >=500 mg/dL (NEGATIVE); KETONES,URINE NEGATIVE (NEGATIVE); LEUKOCYTE ESTERASE,URINE NEGATIVE (NEGATIVE); NITRITE,URINE NEGATIVE (NEGATIVE); PROTEIN,URINE NEGATIVE (NEGATIVE); URINE SPECIFIC GRAVITY 1.036; UROBILINOGEN,URINE NEGATIVE mg/dL (<2.0)
== END 2017-12-20 15:26 | disposition home or self-care (01) ==
LOC: ER 06:33
DX: J44.1 Chronic obstructive pulmonary disease with (acute) exacerbation (principal); R13.10 Dysphagia, unspecified; I10 Essential (primary) hypertension; E11.9 Type 2 diabetes mellitus without complications; Z88.3 Allergy status to other anti-infective agents; Z88.0 Allergy status to penicillin
CPT/HCPCS: 94640 ×2; 99285; 96372; 96375; 96365; 96366; 36415; 87040; 87070; 87086; 87880; 82962; 83605 ×2; 85025; 80053; 81001; 71046; 70491; J1610; J2930; J1956; J3490; A9270; J7620

== ENCOUNTER → 2017-12-31 | Outpatient (CLI) | payer MEDICARE, MEDICAID ==
[2017-12-31 12:38] LABS: ARTERIAL BLOOD BASE EXCESS 3.5 mmol/L; ARTERIAL BLOOD H2CO3 1.18 mmol/L (1.05-1.35); ARTERIAL BLOOD HCO3 27.4 mmol/L (20-26); ARTERIAL BLOOD O2 SATURATION 96.6 % (94-98); ARTERIAL BLOOD PCO2 39.2 mmHg (35-45); ARTERIAL BLOOD PH 7.46 (7.35-7.45); ARTERIAL BLOOD PO2 81.7 mmHg (80-100); ARTERIAL BLOOD TOTAL CO2 28.6 mmol/L (21-25)
[2017-12-31 12:40] LABS: ABSOLUTE EOSINOPHILS # (AUTO) 0.2 10^3/uL (0.0-0.6); ABSOLUTE LYMPHOCYTES (AUTO) 1.9 10^3/uL (0.5-4.7); ABSOLUTE MONOCYTES (AUTO) 0.7 10^3/uL (0.1-1.4); ABSOLUTE NEUT (AUTO) 7.8 10^3/uL (1.7-8.2); BASOPHILS % (AUTO) 0.3 % (0-2); HEMATOCRIT 37.1 % (36.0-47.0); HEMOGLOBIN 11.8 g/dL (12.0-15.5); LYMPHOCYTES % (AUTO) 17.9 % (13-45); MEAN CORPUSCULAR HEMOGLOBIN 25.5 pg (27.0-33.4); MEAN CORPUSCULAR HGB CONC 31.7 g/dL (32.0-36.0); MEAN CORPUSCULAR VOLUME 80 fl (80-97); MONOCYTES % (AUTO) 6.7 % (3-13); PLATELET COUNT 344 10^3/uL (150-450); RED BLOOD COUNT 4.62 10^6/uL (3.72-5.28); RED CELL DISTRIBUTION WIDTH 17.2 % (11.5-14.0); SEGMENTED NEUTROPHILS % (AUTO) 73.1 % (42-78); TOTAL CELLS COUNTED % (AUTO) 100 %; WHITE BLOOD COUNT 10.6 10^3/uL (4.0-10.5)
[2017-12-31 12:40] LABS: ARTERIAL BLOOD FIO2 ROOM AIR
[2017-12-31 13:05] LABS: POTASSIUM 4.5 mmol/L (3.6-5.0)
[2017-12-31 13:36] LABS: FERRITIN 14.7 ng/mL (6.2-137.0)
[2018-01-01 16:40] LABS: FOLATE HEMOLYSATE 273.3 ng/mL (Not Estab.)
[2018-01-05 09:01] LABS: IMMUNOGLOBULIN E 449 IU/mL (0-100)
== END ==
LOC: OD 11:11
PROVIDERS: ATTEND Internal Medicine Pulmonary Disease
DX: J44.9 Chronic obstructive pulmonary disease, unspecified (principal); G25.81 Restless legs syndrome; R53.1 Weakness; E66.01 Morbid (severe) obesity due to excess calories
CPT/HCPCS: 36415; 82306; 82607; 82728; 82747; 82785; 82803; 83735; 84132; 85025; 87070; 87205

== ENCOUNTER 2018-01-19 20:08 | Emergency (ER) | payer MEDICARE, MEDICAID ==
[2018-01-19] MEDS ORDERED: RINGERS SOLUTION,LACTATED 1,000 ML IV ONE (23:15)
[2018-01-19] MEDS ORDERED: KETOROLAC TROMETHAMINE INJ/PF 30 MG/1 ML SDV IV ONE (23:15)
--- NOTE | 2018-01-19 23:15 | ER Document Report ---
ED General - General Chief Complaint: Abdominal Pain Stated Complaint: ABDOMINAL PAIN Time Seen by Provider: 01/19/18 22:23 Notes: Patient is a 47-year-old female with a past history of morbid obesity, diabetes , hypertension who presents with left-sided flank tenderness that started approximately 1 hour prior to arrival. Patient describes this as a severe, stabbing, throbbing pain to her left flank radiating to her left lower abdomen. Nothing improves or worsens her pain. She states this feels very similar to when she had a kidney infection in the past. She notes associated nausea but no vomiting. She denies any fever or constitutional symptoms. She has not seen her primary doctor regarding today's concerns. TRAVEL OUTSIDE OF THE [place] IN LAST 30 DAYS: No - Related Data Allergies/Adverse Reactions: clarithromycin [From Biaxin] Allergy (Mild, Verified 05/22/17 18:40) Generalized rash Penicillins Allergy (Mild, Verified 05/22/17 18:40) amoxicillin [From Augmentin] Adverse Reaction (Mild, Verified 05/22/17 18:40) clavulanic acid [From Augmentin] Adverse Reaction (Mild, Verified 05/22/17 18:40 ) Past Medical History - General Information source: Patient - Social History Smoking Status: Former Smoker Chew tobacco use (# tins/day): No Frequency of alcohol use: Rare Drug Abuse: None Lives with: Family Family History: Arthritis, CAD, CVA, DM, Hyperlipidemia, Hypertension, Malignancy, Thyroid Disfunction Patient has suicidal ideation: No Patient has homicidal ideation: No - Past Medical History Cardiac Medical History: Reports: Hx Hypertension Denies: Hx Coronary Artery Disease, Hx Heart Attack Pulmonary Medical History: Reports: Hx Asthma, Hx COPD - intubated 2013, Hx Pneumonia Denies: Hx Bronchitis Neurological Medical History: Denies: Hx Cerebrovascular Accident, Hx Seizures Endocrine Medical History: Reports: Hx Diabetes Mellitus Type 2 Renal/ Medical History: Denies: Hx Peritoneal Dialysis GI Medical History: Reports: Hx Gastroesophageal Reflux Disease Musculoskeltal Medical History: Denies Hx Arthritis, Reports Hx Musculoskeletal Trauma Psychiatric Medical History: Reports: Hx Anxiety, Hx Depression, Hx Post Traumatic Stress Disorder Past Surgical History: Reports: Hx Cardiac Catheterization - 01/17/2017, Hx Section, Hx Cholecystectomy, Hx Orthopedic Surgery - LEFT SHOULDER - Immunizations Immunizations up to date: No Hx Diphtheria, Pertussis, Tetanus Vaccination: Yes Hx Pneumococcal Vaccination: 09/08/09 Review of Systems - Review of Systems Notes: Constitutional: Negative for fever. HENT: Negative for sore throat. Eyes: Negative for visual changes. Cardiovascular: Negative for chest pain. Respiratory: Negative for shortness of breath. Gastrointestinal: Positive for flank tenderness and lower abdominal tenderness. Genitourinary: Positive for dysuria and hematuria Musculoskeletal: Negative for back pain. Skin: Negative for rash. Neurological: Negative for headaches, weakness or numbness. 10 point ROS negative except as marked above and in HPI. Physical Exam - Vital signs Vitals: Temp Pulse Resp BP Pulse Ox 98.3 F 116 H 18 169/73 H 98 01/19/18 20:39 01/19/18 20:39 01/19/18 20:39 01/19/18 20:39 01/19/18 20:39 Interpretation: Tachycardic Notes: PHYSICAL EXAMINATION: GENERAL: Appears moderately uncomfortable but in no acute distress HEAD: Atraumatic, normocephalic. EYES: Pupils equal round and reactive to light, extraocular movements intact, sclera anicteric, conjunctiva are normal. ENT: nares patent, oropharynx clear without exudates. Dry mucous membranes. NECK: Normal range of motion, supple without lymphadenopathy LUNGS: Breath sounds clear to auscultation bilaterally and equal. No wheezes rales or rhonchi. HEART: Regular rate and rhythm without murmurs ABDOMEN: Soft, left CVA tenderness to palpation. Suprapubic abdominal tenderness. No other localized areas of tenderness. No rebound or guarding. EXTREMITIES: Normal range of motion, no pitting or edema. No cyanosis. NEUROLOGICAL: No focal neurological deficits. Moves all extremities spontaneously and on command. PSYCH: Normal mood, normal affect. SKIN: Warm, Dry, normal turgor, no rashes or lesions noted. Course - Re-evaluation Re-evalutation: 01/19/18 23:15 Presentation is most consistent with acute pyelonephritis. Laboratories do demonstrate a large amount of white blood cells in the urine. Patient has had constitutional symptoms at home as well as a fever. CVA tenderness is present on exam. The remainder laboratories are relatively unremarkable without evidence of renal dysfunction. CT obtained due to the large amount of red blood cells in the urine which is noted to not demonstrate any evidence of nephrolithiasis. I do not suspect an acute appendicitis, biliary pathology, pancreatitis, intra-abdominal abscess, or tubo-ovarian abscess based on history and examination. Patient has been given a dose of IV ceftriaxone and a liter of fluids. Patient is able to tolerate oral intake without difficulty. Will be discharged home on 7 day course of cephalexin. A urine culture has been sent. Strict return precautions and follow-up recommendations have been discussed at length. - Vital Signs Vital signs: Temp Pulse Resp BP Pulse Ox 98.3 F 116 H 18 169/73 H 98 01/19/18 20:39 01/19/18 20:39 01/19/18 20:39 01/19/18 20:39 01/19/18 20:39 - Laboratory Result Diagrams: 01/19/18 23:15 01/19/18 23:15 Laboratory results interpreted by me: 01/19/18 01/20/18 23:15 00:46 WBC 13.8 H Hgb 11.3 L Hct 35.7 L MCH 25.8 L MCHC 31.7 L RDW 18.0 H Absolute Neutrophils 10.7 H Urine Protein 30 H Urine Glucose (UA) 150 H Urine Blood LARGE H Urine Urobilinogen 2.0 H Ur Leukocyte Esterase TRACE H - Diagnostic Test Radiology reviewed: Reports reviewed Discharge - Discharge Clinical Impression: Left flank pain, Pyelonephritis, Morbid obesity with BMI of 45.0-49.9, adult Condition: Good Disposition: HOME, SELF-CARE Additional Instructions: You have been diagnosed with a condition called pyelonephritis which is an infection involving your kidneys and bladder. You have been given a dose of antibiotics here in the emergency department to help begin to treat this infection. Your also being sent home on antibiotics. Please start taking these later on today when you fill the prescription. Complete the course even if you feel better. Please return if you have persistent vomiting, pass out, have worsening pain, become unable to tolerate fluids, or have any other symptoms that are concerning to you. Please follow-up with your primary care physician in the next 24-48 hours. Prescriptions: Cephalexin Monohydrate [Keflex 500 mg Capsule] 500 mg PO Q6H 7 Days capsule
[2018-01-19 23:35] LABS: ABSOLUTE BASOPHILS # (AUTO) 0.1 10^3/uL (0.0-0.2); ABSOLUTE EOSINOPHILS # (AUTO) 0.1 10^3/uL (0.0-0.6); ABSOLUTE LYMPHOCYTES (AUTO) 1.9 10^3/uL (0.5-4.7); ABSOLUTE NEUT (AUTO) 10.7 10^3/uL (1.7-8.2); BASOPHILS % (AUTO) 0.4 % (0-2); EOSINOPHILS % (AUTO) 0.8 % (0-6); HEMATOCRIT 35.7 % (36.0-47.0); HEMOGLOBIN 11.3 g/dL (12.0-15.5); LYMPHOCYTES % (AUTO) 14.1 % (13-45); MEAN CORPUSCULAR HEMOGLOBIN 25.8 pg (27.0-33.4); MEAN CORPUSCULAR HGB CONC 31.7 g/dL (32.0-36.0); MEAN CORPUSCULAR VOLUME 81 fl (80-97); PLATELET COUNT 355 10^3/uL (150-450); RED BLOOD COUNT 4.39 10^6/uL (3.72-5.28); SEGMENTED NEUTROPHILS % (AUTO) 77.7 % (42-78); TOTAL CELLS COUNTED % (AUTO) 100 %; WHITE BLOOD COUNT 13.8 10^3/uL (4.0-10.5)
[2018-01-19 23:55] LABS: ALANINE AMINOTRANSFERASE 41 U/L (9-52); ALBUMIN 3.8 g/dL (3.5-5.0); ALKALINE PHOSPHATASE 89 U/L (38-126); ANION GAP 12 (5-19); ASPARTATE AMINO TRANSFERASE 20 U/L (14-36); BILIRUBIN,DIRECT 0.3 mg/dL (0.0-0.4); BILIRUBIN,TOTAL 0.3 mg/dL (0.2-1.3); BLOOD UREA NITROGEN 15 mg/dL (7-20); CALCIUM 9.1 mg/dL (8.4-10.2); CARBON DIOXIDE 26 mmol/L (22-30); CHLORIDE 104 mmol/L (98-107); GLUCOSE 94 mg/dL (75-110); LIPASE 65.9 U/L (23-300); POTASSIUM 3.8 mmol/L (3.6-5.0); SODIUM 142.2 mmol/L (137-145); TOTAL PROTEIN 6.7 g/dL (6.3-8.2)
[2018-01-20 01:09] LABS: APPEARANCE,URINE SLIGHTLY-CLOUDY; BILIRUBIN,URINE NEGATIVE (NEGATIVE); COLOR,URINE YELLOW; GLUCOSE, URINE 150 mg/dL (NEGATIVE); KETONES,URINE NEGATIVE (NEGATIVE); LEUKOCYTE ESTERASE,URINE TRACE (NEGATIVE); NITRITE,URINE NEGATIVE (NEGATIVE); PROTEIN,URINE 30 mg/dL (NEGATIVE); URINE SPECIFIC GRAVITY 1.027
[2018-01-20] MEDS ORDERED: CEFTRIAXONE INJ 1000 MG VIAL IV ONE (01:50)
--- NOTE | 2018-01-20 02:09 | RADIOLOGY REPORT (SQ) ---
EXAM DESCRIPTION: CT ABDOMEN PELVIS WITHOUT IV CONTRAST CLINICAL HISTORY: 47 years Female, eval renal colic Comparison: 07.12.17 Technique: No contrast. Coronal and sagittal reformat. This exam was performed according to our departmental dose-optimization program, which includes automated exposure control, adjustment of the mA and/or kV according to patient size and/or use of iterative reconstruction technique.[facility]: Dose Right [facility]: CareDose [facility]: Dose Right [facility]: Teradose 4D [facility]: [employer] LIMITATIONS: None. Findings: Small atelectasis or scar of the right lower lobe, moderate hepatic steatosis, cholecystectomy clips, no evidence of appendicitis, chronic small nonspecific calcification at the pancreatic tail, Unenhanced lower thorax, abdominopelvic structures, and musculoskeleton appear otherwise grossly unremarkable. Impression: No acute findings. Hepatic steatosis.
[2018-01-20 03:49] VITALS: BP 131/52
== END 2018-01-20 03:58 | disposition home or self-care (01) ==
LOC: ER 20:08
DX: N12 Tubulo-interstitial nephritis, not specified as acute or chronic (principal); R10.30 Lower abdominal pain, unspecified; E66.01 Morbid (severe) obesity due to excess calories; Z68.42 Body mass index [BMI] 45.0-49.9, adult; I10 Essential (primary) hypertension; Z88.0 Allergy status to penicillin; Z88.3 Allergy status to other anti-infective agents; Z87.891 Personal history of nicotine dependence; Z90.49 Acquired absence of other specified parts of digestive tract
CPT/HCPCS: 99284; 96361; 96375; 96365; 36415; 83690; 85025; 80053; 81001; 74176; J1885; J0696; J7120

== ENCOUNTER 2018-02-12 23:52 | Emergency (ER) | payer MEDICARE, MEDICAID ==
--- NOTE | 2018-02-13 00:58 | RADIOLOGY REPORT (SQ) ---
EXAM DESCRIPTION: XR CHEST 1 VIEW COMPLETED DATE/TME: 02/13/2018 00:17 CLINICAL HISTORY: 47 years Female, shortness of breath COMPARISON: None. NUMBER OF VIEWS/TECHNIQUE: 1/AP FINDINGS: Adequate lung volume, clear parenchyma, normal cardiac silhouette, and intact bony thorax. IMPRESSION: No acute cardiopulmonary findings.
--- NOTE | 2018-02-13 01:11 | ER Document Report ---
ED General - General Mode of Arrival: Ambulatory Information source: Patient TRAVEL OUTSIDE OF THE [place] IN LAST 30 DAYS: No <CHYNA WADDELL - Last Filed: 02/13/18 01:34> <BRENNAN WHITE - Last Filed: 02/13/18 04:50> - General Chief Complaint: Shortness Of Breath Stated Complaint: TORUBLE BREATHING Time Seen by Provider: 02/13/18 00:55 Notes: Patient is a 47 year old female presenting to the emergency department complaining of difficulty breathing onset a few days ago worsening today. Patient states that it also has been hard for her to walk around lately due to her shortness of breath and bilateral leg pain. Patient states breathing treatments at home normally relieves her symptoms but states today the breathing treatments today have not helped. Patient also complains of chest pain and back pain. Patient states that she had an ultrasound of the lower extremities performed a few weeks ago due to bilateral lower extremity swelling. (CHYNA WADDELL) This 47-year-old female patient with COPD on prednisone 20 mg a day on a chronic basis. She reports her breathing is been getting slowly worse for the last 2 days. She also complains of her legs feeling swollen hurting in her back hurting. She does report that the last time she had problems like this her pulmonary medicine doctor had her increase her prednisone to 60 mg a day for 3 days, then 40 mg for 3 days, then back to 20 mg. This was about 1-1/2 months ago. (BRENNAN WHITE) - Related Data Allergies/Adverse Reactions: clarithromycin [From Biaxin] Allergy (Mild, Verified 05/22/17 18:40) Generalized rash Penicillins Allergy (Mild, Verified 05/22/17 18:40) amoxicillin [From Augmentin] Adverse Reaction (Mild, Verified 05/22/17 18:40) clavulanic acid [From Augmentin] Adverse Reaction (Mild, Verified 05/22/17 18:40 ) Past Medical History - General Information source: Patient - Social History Smoking Status: Unknown if Ever Smoked Family History: Arthritis, CAD, CVA, DM, Hyperlipidemia, Hypertension, Malignancy, Thyroid Disfunction - Past Medical History Cardiac Medical History: Reports: Hx Hypertension Pulmonary Medical History: Reports: Hx Asthma, Hx COPD, Hx Pneumonia Neurological Medical History: Reports: Hx Seizures. Denies: Hx Cerebrovascular Accident Endocrine Medical History: Reports: Hx Diabetes Mellitus Type 2 GI Medical History: Reports: Hx Gastroesophageal Reflux Disease Musculoskeltal Medical History: Reports Hx Arthritis, Reports Hx Musculoskeletal Trauma Psychiatric Medical History: Reports: Hx Anxiety, Hx Depression, Hx Post Traumatic Stress Disorder Past Surgical History: Reports: Hx Cardiac Catheterization - 01/17/2017, Hx Section, Hx Cholecystectomy, Hx Orthopedic Surgery - LEFT SHOULDER - Immunizations Immunizations up to date: No Hx Diphtheria, Pertussis, Tetanus Vaccination: Yes Hx Pneumococcal Vaccination: 09/08/09 <CHYNA WADDELL - Last Filed: 02/13/18 01:34> Review of Systems - Review of Systems Constitutional: No symptoms reported EENT: No symptoms reported Cardiovascular: See HPI, Chest pain Respiratory: See HPI Gastrointestinal: No symptoms reported Genitourinary: No symptoms reported Female Genitourinary: No symptoms reported Musculoskeletal: See HPI, Back pain Skin: No symptoms reported Hematologic/Lymphatic: No symptoms reported Neurological/Psychological: No symptoms reported -: Yes All other systems reviewed and negative <CHYNA WADDELL - Last Filed: 02/13/18 01:34> Physical Exam - General General appearance: Appears well, Alert In distress: None - HEENT Head: Normocephalic, Atraumatic Eyes: Normal Conjunctiva: Normal Extraocular movements intact: Yes Pupils: PERRL Neck: Normal - Respiratory Respiratory status: No respiratory distress Chest status: Nontender Breath sounds: Wheezing Chest palpation: Normal - Cardiovascular Rhythm: Regular Heart sounds: Normal auscultation Murmur: No Friction rub: No Gallop: None auscultated - Abdominal Inspection: Morbidly Obese Distension: No distension Bowel sounds: Normal Tenderness: Nontender Organomegaly: No organomegaly - Back Back: Normal - Extremities General upper extremity: Normal ROM General lower extremity: Nontender, Edema - 1+ pitting edema bilaterally, no erythema., Normal ROM - Neurological Neuro grossly intact: Yes Cognition: Normal Orientation: AAOx4 [place] Coma Scale Eye Opening: Spontaneous [place] Coma Scale Verbal: Oriented Mario Coma Scale Motor: Obeys Commands Mario Coma Scale Total: 15 Speech: Normal - Psychological Associated symptoms: Normal affect, Normal mood - Skin Skin Temperature: Warm Skin Moisture: Dry Skin Color: Normal <CHYNA WADDELL - Last Filed: 02/13/18 01:34> - Vital signs Vitals: Temp Pulse Resp BP Pulse Ox 98.3 F 108 H 24 H 138/70 H 96 02/13/18 00:13 02/13/18 00:13 02/13/18 00:13 02/13/18 00:13 02/13/18 00:13 Course - Laboratory Result Diagrams: 02/13/18 01:10 02/13/18 01:10 <CHYNA WADDELL - Last Filed: 02/13/18 01:34> - Laboratory Result Diagrams: 02/13/18 01:10 02/13/18 01:10 <BRENNAN WHITE - Last Filed: 02/13/18 04:50> - Re-evaluation Re-evalutation: 02/13/18 04:46 Patient reports that breathing treatments help her breathing, then gets a little worse. At this time she is 94% oxygen saturation on room air. Her chest x-ray is unremarkable, her CBC and Chem-12 are unremarkable and she has no sputum. She is agreeable to trying the prednisone taper that was used by her pulmonary medicine doctor about one half months ago. We will initiate the 60 mg prednisone here while she is in the emergency room before she is discharged. She will follow-up with her pulmonary medicine doctor and ask him about doing her own taper doses in the future if she is afebrile and without sputum and only having to increase frequency of her breathing treatments as is the case today. (BRENNAN WHITE) - Vital Signs Vital signs: Temp Pulse Resp BP Pulse Ox 98.3 F 108 H 12 133/75 H 94 02/13/18 00:13 02/13/18 00:13 02/13/18 04:31 02/13/18 04:31 02/13/18 04:31 - Laboratory Laboratory results interpreted by me: 02/13/18 02/13/18 02/13/18 01:10 01:10 01:10 WBC 11.4 H Hgb 11.6 L Hct 35.7 L MCH 26.0 L RDW 18.2 H Absolute Neutrophils 8.6 H D-Dimer 0.72 H Glucose 142 H Discharge <CHYNA WADDELL - Last Filed: 02/13/18 01:34> <BRENNAN WHITE - Last Filed: 02/13/18 04:50> - Discharge Clinical Impression: COPD exacerbation Condition: Stable Disposition: HOME, SELF-CARE Additional Instructions: Increase your prednisone dosing as discussed 260 mg daily for 3 days, 40 mg daily for 3 days, then back to 20 mg a day. Increase your breathing treatment frequency as needed until your breathing is back to baseline. Follow-up with your doctor tomorrow if not improving on the high-dose prednisone. Follow-up with your pulmonary medicine doctor in the next week or so for reevaluation of your COPD management. RETURN TO THE EMERGENCY ROOM IF ANY NEW OR WORSENING SYMPTOMS. Referrals: NATE JASON MD [Primary Care Provider] - Follow up as needed Scribe Attestation: 02/13/18 02:22 I personally performed the services described in the documentation, reviewed and edited the documentation which was dictated to the scribe in my presence, and it accurately records my words and actions. (BRENNAN WHITE) Scribe Documentation - Scribe Written by Uzma:: Uzma Gordon, 02/13/2018 01:13 acting as scribe for :: Tony <CHYNA WADDELL - Last Filed: 02/13/18 01:34>
[2018-02-13 01:19] LABS: ABSOLUTE BASOPHILS # (AUTO) 0.1 10^3/uL (0.0-0.2); ABSOLUTE EOSINOPHILS # (AUTO) 0.3 10^3/uL (0.0-0.6); ABSOLUTE LYMPHOCYTES (AUTO) 1.6 10^3/uL (0.5-4.7); ABSOLUTE MONOCYTES (AUTO) 0.8 10^3/uL (0.1-1.4); ABSOLUTE NEUT (AUTO) 8.6 10^3/uL (1.7-8.2); EOSINOPHILS % (AUTO) 2.6 % (0-6); HEMATOCRIT 35.7 % (36.0-47.0); HEMOGLOBIN 11.6 g/dL (12.0-15.5); LYMPHOCYTES % (AUTO) 14.4 % (13-45); MEAN CORPUSCULAR HGB CONC 32.3 g/dL (32.0-36.0); MEAN CORPUSCULAR VOLUME 81 fl (80-97); MONOCYTES % (AUTO) 6.7 % (3-13); PLATELET COUNT 358 10^3/uL (150-450); RED BLOOD COUNT 4.44 10^6/uL (3.72-5.28); RED CELL DISTRIBUTION WIDTH 18.2 % (11.5-14.0); SEGMENTED NEUTROPHILS % (AUTO) 75.3 % (42-78); TOTAL CELLS COUNTED % (AUTO) 100 %; WHITE BLOOD COUNT 11.4 10^3/uL (4.0-10.5)
[2018-02-13 01:28] LABS: ALANINE AMINOTRANSFERASE 41 U/L (9-52); ALBUMIN 3.8 g/dL (3.5-5.0); ALKALINE PHOSPHATASE 90 U/L (38-126); ANION GAP 12 (5-19); ASPARTATE AMINO TRANSFERASE 25 U/L (14-36); BILIRUBIN,DIRECT 0.3 mg/dL (0.0-0.4); BILIRUBIN,TOTAL 0.5 mg/dL (0.2-1.3); BLOOD UREA NITROGEN 11 mg/dL (7-20); CALCIUM 9.6 mg/dL (8.4-10.2); CARBON DIOXIDE 24 mmol/L (22-30); CHLORIDE 104 mmol/L (98-107); CREATINE KINASE 44 U/L (30-135); GLUCOSE 142 mg/dL (75-110); SODIUM 139.6 mmol/L (137-145); TOTAL PROTEIN 6.9 g/dL (6.3-8.2)
[2018-02-13 01:40] LABS: CREATINE KINASE MB < 0.22 ng/mL (<4.55); NT PRO BNP 18 pg/mL (<125); TROPONIN I < 0.012 ng/mL
[2018-02-13] MEDS ORDERED: IPRATROPIUM/ALBUTEROL 0.5-2.5 MG/3 ML AMPUL NEB ONE (02:46)
[2018-02-13] MEDS ORDERED: ALBUTEROL SULFATE 0.083% NEB 2.5 MG/3 ML AMPUL NEB ONE (03:17)
[2018-02-13] MEDS ORDERED: PREDNISONE 20 MG TABLET PO ONE (04:45)
[2018-02-13 05:11] VITALS: BP 145/75
--- NOTE | 2018-02-13 09:32 | EKG REPORT ---
SEVERITY:- BORDERLINE ECG - SINUS TACHYCARDIA BORDERLINE T ABNORMALITIES, INFERIOR LEADS : Confirmed by: Fritz Tobar 13-Feb-2018 09:31:45
== END 2018-02-13 05:13 | disposition home or self-care (01) ==
LOC: ER 23:52
DX: J44.1 Chronic obstructive pulmonary disease with (acute) exacerbation (principal); R06.02 Shortness of breath; M79.604 Pain in right leg; M79.605 Pain in left leg; R07.9 Chest pain, unspecified; R60.0 Localized edema; M54.9 Dorsalgia, unspecified; I10 Essential (primary) hypertension; E11.9 Type 2 diabetes mellitus without complications; Z79.52 Long term (current) use of systemic steroids; Z88.1 Allergy status to other antibiotic agents; Z88.0 Allergy status to penicillin; Z87.01 Personal history of pneumonia (recurrent)
CPT/HCPCS: 93005; 94640 ×2; 99285; 36415; 82553; 82550; 85025; 80053; 84484; 85379; 83880; 71045; 93010; A9270 ×3; J7512; J7620

== ENCOUNTER → 2018-06-13 | Outpatient (CLI) | payer MEDICARE, MEDICAID ==
--- NOTE | 2018-06-13 14:02 | RADIOLOGY REPORT (SQ) ---
EXAM DESCRIPTION: CHEST PA/LATERAL COMPLETED DATE/TIME: 06/13/2018 1:33 pm REASON FOR STUDY: PRE-OP COMPARISON: 12/20/2017. EXAM PARAMETERS: NUMBER OF VIEWS: two views TECHNIQUE: Digital Frontal and Lateral radiographic views of the chest acquired. RADIATION DOSE: NA LIMITATIONS: none FINDINGS: LUNGS AND PLEURA: Calcified granuloma in the right lung. Mild chronic interstitial change s. No infiltrates, masses or pneumothorax. No pleural effusion. MEDIASTINUM AND HILAR STRUCTURES: No masses or contour abnormalities. HEART AND VASCULAR STRUCTURES: Heart normal size. No evidence for failure. BONES: No acute findings. HARDWARE: None in the chest. OTHER: No other significant finding. IMPRESSION: NO ACUTE RADIOGRAPHIC FINDING IN THE CHEST. TECHNICAL DOCUMENTATION: JOB ID: [id number] Technology- All Rights Reserved Reading location - IP/workstation name: [email or web address]
== END ==
LOC: OD 13:13
PROVIDERS: ATTEND Internal Medicine
DX: J44.0 Chronic obstructive pulmonary disease with (acute) lower respiratory infection (principal)
CPT/HCPCS: 71046

== ENCOUNTER 2018-07-30 20:52 | Emergency (ER) | payer MEDICARE, MEDICAID ==
[2018-07-30 23:25] LABS: ABSOLUTE BASOPHILS # (AUTO) 0.1 10^3/uL (0.0-0.2); ABSOLUTE LYMPHOCYTES (AUTO) 1.5 10^3/uL (0.5-4.7); ABSOLUTE MONOCYTES (AUTO) 0.9 10^3/uL (0.1-1.4); BASOPHILS % (AUTO) 0.5 % (0-2); EOSINOPHILS % (AUTO) 0.2 % (0-6); HEMATOCRIT 36.6 % (36.0-47.0); HEMOGLOBIN 11.7 g/dL (12.0-15.5); LYMPHOCYTES % (AUTO) 9.8 % (13-45); MEAN CORPUSCULAR HEMOGLOBIN 25.6 pg (27.0-33.4); MEAN CORPUSCULAR HGB CONC 31.9 g/dL (32.0-36.0); MEAN CORPUSCULAR VOLUME 80 fl (80-97); MONOCYTES % (AUTO) 5.8 % (3-13); PLATELET COUNT 343 10^3/uL (150-450); RED BLOOD COUNT 4.55 10^6/uL (3.72-5.28); RED CELL DISTRIBUTION WIDTH 17.8 % (11.5-14.0); SEGMENTED NEUTROPHILS % (AUTO) 83.7 % (42-78); TOTAL CELLS COUNTED % (AUTO) 100 %; WHITE BLOOD COUNT 15.5 10^3/uL (4.0-10.5)
[2018-07-30 23:39] LABS: ALANINE AMINOTRANSFERASE 67 U/L (9-52); ALBUMIN 3.7 g/dL (3.5-5.0); ALKALINE PHOSPHATASE 117 U/L (38-126); ANION GAP 14 (5-19); ASPARTATE AMINO TRANSFERASE 32 U/L (14-36); BILIRUBIN,DIRECT 0.2 mg/dL (0.0-0.4); BILIRUBIN,TOTAL 0.3 mg/dL (0.2-1.3); BLOOD UREA NITROGEN 7 mg/dL (7-20); CALCIUM 9.1 mg/dL (8.4-10.2); CARBON DIOXIDE 24 mmol/L (22-30); CHLORIDE 104 mmol/L (98-107); GLUCOSE 192 mg/dL (75-110); LIPASE 65.6 U/L (23-300); POTASSIUM 4.3 mmol/L (3.6-5.0); SODIUM 142.1 mmol/L (137-145); TOTAL PROTEIN 6.5 g/dL (6.3-8.2)
[2018-07-31 00:33] LABS: APPEARANCE,URINE CLEAR; BILIRUBIN,URINE NEGATIVE (NEGATIVE); COLOR,URINE YELLOW; GLUCOSE, URINE >=500 mg/dL (NEGATIVE); KETONES,URINE TRACE mg/dL (NEGATIVE); LEUKOCYTE ESTERASE,URINE NEGATIVE (NEGATIVE); NITRITE,URINE NEGATIVE (NEGATIVE); PROTEIN,URINE NEGATIVE (NEGATIVE); URINE SPECIFIC GRAVITY 1.025; UROBILINOGEN,URINE NEGATIVE mg/dL (<2.0)
[2018-07-31] MEDS ORDERED: KETOROLAC TROMETHAMINE INJ/PF 30 MG/1 ML SDV IV ONE (00:36)
--- NOTE | 2018-07-31 00:55 | ER Document Report ---
ED GI/ - General Chief Complaint: Abdominal Pain >50 Stated Complaint: SHORTNESS OF BREATH Time Seen by Provider: 07/30/18 23:47 Mode of Arrival: Ambulatory Information source: Patient Notes: Patient is a 48-year-old female with a history of COPD, PTSD, and prior "kidney infection" who presents with bilateral flank pain as well as lower abdominal pain for the past several hours. Patient reports pain is both sharp and persistent, sometimes can be aching and throbbing, radiation to both flanks. She reports no fever or chills but does say she has been nauseated. She reports it is similar to her previous episode of "kidney infection" but does report this episode is worse. She denies vaginal bleeding or discharge. TRAVEL OUTSIDE OF THE [place] IN LAST 30 DAYS: No - HPI Patient complains to provider of: Abdominal pain, Flank pain. No: Dysuria, Hematuria, Pelvic pain, Vaginal bleeding, Vaginal discharge Onset: This afternoon Timing/Duration: Sudden Quality of pain: Cramping, Stabbing, Throbbing. denies: Burning Severity at maximum: Severe Severity in ED: Moderate Pain Level: 3 Location: LLQ, RLQ, Left flank, Right flank, Suprapubic. No: Pelvis, Vaginal Vaginal bleeding (Compared to normal period): None Sexual history: Inactive Associated symptoms: Vomiting. denies: Constipation, Diarrhea, Fever, Hematuria , Vaginal discharge Exacerbated by: Denies Relieved by: Denies Similar symptoms previously: Yes Recently seen / treated by doctor: No - Related Data Allergies/Adverse Reactions: clarithromycin [From Biaxin] Allergy (Mild, Verified 07/30/18 20:53) Generalized rash Penicillins Allergy (Mild, Verified 07/30/18 20:53) amoxicillin [From Augmentin] Adverse Reaction (Mild, Verified 07/30/18 20:53) clavulanic acid [From Augmentin] Adverse Reaction (Mild, Verified 07/30/18 20:53 ) Past Medical History - General Information source: Patient - Social History Smoking Status: Former Smoker Cigarette use (# per day): No Chew tobacco use (# tins/day): No Frequency of alcohol use: None Drug Abuse: None Lives with: Alone Family History: Arthritis, CAD, CVA, DM, Hyperlipidemia, Hypertension, Malignancy, Thyroid Disfunction Patient has suicidal ideation: No Patient has homicidal ideation: No - Past Medical History Cardiac Medical History: Reports: Hx Hypertension Denies: Hx Coronary Artery Disease, Hx Heart Attack Pulmonary Medical History: Reports: Hx Asthma, Hx COPD, Hx Pneumonia Denies: Hx Bronchitis EENT Medical History: Reports: None Neurological Medical History: Reports: None. Denies: Hx Cerebrovascular Accident, Hx Seizures Endocrine Medical History: Reports: Hx Diabetes Mellitus Type 2 Renal/ Medical History: Reports: None. Denies: Hx Peritoneal Dialysis Malignancy Medical History: Reports: None GI Medical History: Reports: Hx Gastroesophageal Reflux Disease Musculoskeletal Medical History: Denies Hx Arthritis, Reports Hx Musculoskeletal Trauma Skin Medical History: Reports None Psychiatric Medical History: Reports: Hx Anxiety, Hx Depression, Hx Post Traumatic Stress Disorder Traumatic Medical History: Reports: None Infectious Medical History: Reports: None Past Surgical History: Reports: Hx Cardiac Catheterization - 01/17/2017, Hx Section, Hx Cholecystectomy, Hx Orthopedic Surgery - LEFT SHOULDER - Immunizations Immunizations up to date: No Hx Diphtheria, Pertussis, Tetanus Vaccination: Yes Hx Pneumococcal Vaccination: 09/08/09 Review of Systems - Review of Systems -: Yes ROS unobtainable due to patient's medical condition Constitutional: No symptoms reported EENT: No symptoms reported Cardiovascular: No symptoms reported Respiratory: No symptoms reported Gastrointestinal: Abdominal pain, Nausea. denies: Vomiting, Blood streaked bowels, Blood in vomit, Black stools, Rectal bleeding Genitourinary: No symptoms reported Female Genitourinary: No symptoms reported Musculoskeletal: No symptoms reported Skin: No symptoms reported Hematologic/Lymphatic: No symptoms reported Neurological/Psychological: No symptoms reported -: Yes All other systems reviewed and negative Physical Exam - Vital signs Vitals: Pulse Ox 97 07/30/18 22:56 Interpretation: Normal - General General appearance: Appears well, Alert In distress: None - HEENT Head: Normocephalic, Atraumatic Eyes: Normal Pupils: PERRL - Respiratory Respiratory status: No respiratory distress Chest status: Nontender Breath sounds: Normal Chest palpation: Normal - Cardiovascular Rhythm: Regular Heart sounds: Normal auscultation Murmur: No - Abdominal Inspection: Normal Distension: No distension Bowel sounds: Normal Tenderness: Tender - Mild suprapubic and bilateral lower quadrant pain without rebound or guarding, mild bilateral CVA tenderness Organomegaly: No organomegaly - Rectal Tenderness: No - Deferred - Genitourinary Notes: Deferred - Back Back: Normal, Nontender - Extremities General upper extremity: Normal inspection, Nontender, Normal color, Normal ROM , Normal temperature General lower extremity: Normal inspection, Nontender, Normal color, Normal ROM , Normal temperature, Normal weight bearing. No: Jeniffer's sign - Neurological Neuro grossly intact: Yes Cognition: Normal Orientation: AAOx4 Mario Coma Scale Eye Opening: Spontaneous Mario Coma Scale Verbal: Oriented Graford Coma Scale Motor: Obeys Commands Mario Coma Scale Total: 15 Speech: Normal Motor strength normal: LUE, RUE, LLE, RLE Sensory: Normal - Psychological Associated symptoms: Normal affect, Normal mood - Skin Skin Temperature: Warm Skin Moisture: Dry Skin Color: Normal Course - Re-evaluation Re-evalutation: 07/31/18 00:56 Plan will be to obtain labs, urine, and consider CT scan for possible kidney stone versus pyelonephritis pending evidence of infection or blood in the urine sample. 07/31/18 04:03 CT scan is negative for acute intra-abdominal pathology. Lab work is grossly unremarkable other than mildly elevated white blood cell count. Urinalysis is not definite for infection, however given history and presenting complaint, patient will be given empiric antibiotics and will be discharged home with return precautions and follow-up. Patient agrees with and understands plan. - Vital Signs Vital signs: Temp Pulse Resp BP Pulse Ox 16 146/80 H 95 07/31/18 02:01 07/31/18 02:01 07/31/18 02:01 - Laboratory Result Diagrams: 07/30/18 23:15 07/30/18 23:15 Laboratory results interpreted by me: 07/30/18 07/30/18 07/31/18 23:15 23:15 00:15 WBC 15.5 H Hgb 11.7 L MCH 25.6 L MCHC 31.9 L RDW 17.8 H Seg Neutrophils % 83.7 H Lymphocytes % 9.8 L Absolute Neutrophils 13.0 H Glucose 192 H ALT 67 H Urine Glucose (UA) >=500 H Urine Ketones TRACE H Urine Blood MODERATE H - Diagnostic Test Radiology reviewed: Reports reviewed - EKG Interpretation by Me EKG shows normal: Sinus rhythm Rate: Normal Rhythm: NSR Oolitic/QRS: No: LBBB P Waves: No: MADIE, LAE, Absent, AV Dissociation, Other Heart block present: No: 1st Degree, Mobitz 1, Mobitz 2, CHB (3rd degree block) When compared to previous EKG there are: Previous EKG unavailable Discharge - Discharge Clinical Impression: Abdominal pain, UTI (urinary tract infection) Condition: Good Disposition: HOME, SELF-CARE Instructions: Abdominal Pain ([facility]), Urinary Tract Infection ([facility]) Additional Instructions: Please follow-up with your regular physician as needed. Return to the emergency department if you experience high fevers, worsening pain, inability to urinate, or any other concerning symptom. Prescriptions: Tramadol HCl [Ultram 50 mg Tablet] 50 mg PO Q6HP PRN 7 Days #28 tablet PRN Reason: For Pain Ondansetron [Zofran Odt 4 mg Tablet] 4 mg PO Q8H PRN #30 tab.rapdis PRN Reason: For Nausea/Vomiting Sulfamethoxazole/Trimethoprim [Bactrim Ds Tablet] 1 each PO BID 7 Days #14 tablet Referrals: NATE JASON MD [Primary Care Provider] - Follow up as needed Print Language: Paraguayan
[2018-07-31 01:17] LABS: URINE AMPHETAMINES SCREEN NEGATIVE; URINE BARBITURATES SCREEN NEGATIVE; URINE BENZODIAZEPINES SCREEN NEGATIVE; URINE COCAINE SCREEN NEGATIVE; URINE MARIJUANA (THC) SCREEN NEGATIVE; URINE METHADONE SCREEN NEGATIVE; URINE PHENCYCLIDINE SCREEN NEGATIVE
[2018-07-31] MEDS ORDERED: ALBUTEROL SULFATE 0.083% NEB 2.5 MG/3 ML AMPUL NEB ONE (01:50)
--- NOTE | 2018-07-31 03:29 | RADIOLOGY REPORT (SQ) ---
CLINICAL HISTORY: abdominal pain COMPARISON: None. TECHNIQUE: CT ABDOMEN PELVIS WITHOUT IV CONTRAST on 07/31/2018 2:33 AM [employer] This exam was performed according to our departmental dose-optimization program, which includes automated exposure control, adjustment of the mA and/or kV according to patient size and/or use of iterative reconstruction technique. FINDINGS: There is a small calcified right lower lobe granuloma. Abdomen: Liver is fatty in attenuation. There is no biliary dilatation. Cholecystectomy was performed. The pancreas and spleen are normal in appearance. The adrenal glands and kidneys are unremarkable. Abdominal aorta is normal in course and caliber without aneurysm. There is no free air. There is no retroperitoneal adenopathy. Pelvis: There is no bowel obstruction. Urinary bladder is unremarkable. There is no free fluid. Uterus is normal in size. Appendix is normal. Skeleton: There are no acute osseous findings. No suspicious bony lesions. IMPRESSION: No acute inflammatory process. No renal or ureteral calculi.
[2018-07-31] MEDS ORDERED: CEFTRIAXONE 1 GM/D5W RTU 1 GM/50 ML RTUPB IV ONE (04:30)
[2018-07-31 05:19] VITALS: BP 137/80
--- NOTE | 2018-07-31 09:26 | EKG REPORT ---
SEVERITY:- NORMAL ECG - SINUS RHYTHM : Confirmed by: Fritz Tobar 31-Jul-2018 09:26:28
== END 2018-07-31 05:19 | disposition home or self-care (01) ==
LOC: ER 20:52
DX: N39.0 Urinary tract infection, site not specified (principal); I10 Essential (primary) hypertension; J44.9 Chronic obstructive pulmonary disease, unspecified; E11.9 Type 2 diabetes mellitus without complications; Z88.1 Allergy status to other antibiotic agents; Z88.0 Allergy status to penicillin
CPT/HCPCS: 93005; 94640; 99285; 96375; 96365; 36415; 83690; 85025; 80053; 81001; 80307; 74176; 93010; J1885; J0696; A9270

== ENCOUNTER 2018-08-23 08:36 | Emergency (ER) | payer MEDICARE, MEDICAID ==
[2018-08-23] MEDS ORDERED: PHENAZOPYRIDINE HCL 200 MG TABLET PO ONE (09:16)
[2018-08-23] MEDS ORDERED: ACETAMINOPHEN 325 MG TABLET PO ONE (09:17)
--- NOTE | 2018-08-23 09:17 | ER Document Report ---
ED General - General Chief Complaint: Urinary Problem Stated Complaint: FLANK PAIN Time Seen by Provider: 08/23/18 09:12 Notes: Patient is a 48-year-old female with COPD and asthma that presents to the emergency department for chief complaint of suprapubic pain and dysuria and hematuria. Patient states of the last several months she has had frequent urinary tract infections, she is been on multiple antibiotics, and she states it seems that when she finishes it, she starts having suprapubic pain again, and the dysuria comes back she is had some nausea but no vomiting. Denies having any flank pain or tenderness. She did take some ibuprofen this morning that did seem to help with her discomfort, but wanted to come back to the ED to be reevaluated. She denies having any chest pain, shortness of breath or difficulty breathing, headaches or lightheadedness. Past Medical History: Asthma, COPD, depression, PTSD Past Surgical History: Cholecystectomy, shoulder surgery Social History: Former smoker, quit about 1 year ago, denies alcohol or drug use. Family History: Reviewed and noncontributory for presenting illness Allergies: Reviewed, see documented allergy list. REVIEW OF SYSTEMS: Other than noted above, the 12 point review of systems was reviewed with the patient and were negative, all pertinent findings are included in the HPI. PHYSICAL EXAMINATION: Vital signs reviewed, nursing noted reviewed. GENERAL: Morbidly obese female, appears uncomfortable HEAD: Atraumatic, normocephalic. EYES: Eyes appear normal, extraocular movements intact, sclera anicteric, conjunctiva are normal. ENT: nares patent, oropharynx clear without exudates. Moist mucous membranes. NECK: Normal range of motion, supple without lymphadenopathy LUNGS: Breath sounds clear to auscultation bilaterally and equal. No wheezes rales or rhonchi. HEART: Regular rate and rhythm without murmurs ABDOMEN: Soft, obese, mild suprapubic tenderness to palpation, normoactive bowel sounds. No rebound, guarding, or rigidity. No masses appreciated. EXTREMITIES: Nontender, good range of motion, no pitting or edema. NEUROLOGICAL: No focal neurological deficits. Moves all extremities spontaneously Motor and sensory grossly intact on exam. PSYCH: Normal mood, normal affect. SKIN: Warm, Dry, normal turgor, no rashes or lesions noted on exposed skin TRAVEL OUTSIDE OF THE [place] IN LAST 30 DAYS: No - Related Data Allergies/Adverse Reactions: clarithromycin [From Biaxin] Allergy (Mild, Verified 08/23/18 08:39) Generalized rash Penicillins Allergy (Mild, Verified 08/23/18 08:39) amoxicillin [From Augmentin] Adverse Reaction (Mild, Verified 08/23/18 08:39) clavulanic acid [From Augmentin] Adverse Reaction (Mild, Verified 08/23/18 08:39) Past Medical History - Social History Smoking Status: Former Smoker Chew tobacco use (# tins/day): No Drug Abuse: None Family History: Arthritis, CAD, CVA, DM, Hyperlipidemia, Hypertension, Malignancy, Thyroid Disfunction Patient has suicidal ideation: No Patient has homicidal ideation: No - Past Medical History Cardiac Medical History: Reports: Hx Hypertension Denies: Hx Coronary Artery Disease, Hx Heart Attack Pulmonary Medical History: Reports: Hx Asthma, Hx COPD, Hx Pneumonia Denies: Hx Bronchitis Neurological Medical History: Denies: Hx Cerebrovascular Accident, Hx Seizures Endocrine Medical History: Reports: Hx Diabetes Mellitus Type 2 Renal/ Medical History: Denies: Hx Peritoneal Dialysis GI Medical History: Reports: Hx Gastroesophageal Reflux Disease Musculoskeletal Medical History: Denies Hx Arthritis, Reports Hx Musculoskeletal Trauma Psychiatric Medical History: Reports: Hx Anxiety, Hx Depression, Hx Post Traumatic Stress Disorder Past Surgical History: Reports: Hx Cardiac Catheterization - 01/17/2017, Hx Section, Hx Cholecystectomy, Hx Orthopedic Surgery - LEFT SHOULDER - Immunizations Immunizations up to date: No Hx Diphtheria, Pertussis, Tetanus Vaccination: Yes Hx Pneumococcal Vaccination: 09/08/09 Physical Exam - Vital signs Vitals: Temp Pulse Resp BP Pulse Ox 97.5 F 94 24 H 188/86 H 98 08/23/18 08:51 08/23/18 08:51 08/23/18 08:51 08/23/18 08:51 08/23/18 08:51 Course - Re-evaluation Re-evalutation: Patient seen and examined vital signs reviewed. Laboratory data was ordered as appropriate for the patient's presenting symptoms and complaint, with consideration of any critical or life threatening conditions that may be associated with their obtained history and exam as noted above. Patient was treated with Pyridium 200 mg, and Tylenol for pain, prior cultures were reviewed, and the last several have just demonstrated mixed urogenital mickey, without pathogenic organism. My suspicion is the patient may be having symptoms of bacterial vaginosis, and being empirically treated for UTIs. We will treat her with Flagyl, for 7 days, as well as for UTI, with cefdinir . Results were reviewed when available and demonstrated positive leukocyte esterase, white blood cells, will send for culture The patient was re-evaluated and was stable, and improved Evaluation was most consistent with UTI, possible mitral vaginosis, we will treat for both, and given Pyridium as well, advised to follow-up with her primary care physician Discussed with patient that her blood pressure was elevated today as well, and that she is to follow-up with her primary care physician regarding this. Results were discussed with the patient at this point, after careful consideration I feel that that patient can be discharged from the emergency department, the patient was educated treatments and reasons to return to the emergency department based on their presumed diagnosis as noted above, they were advised to followup with a primary care physician in 2-3 days. Patient was agreeable to plan of care. *Note is created using voice recognition software and may contain spelling, syntax or grammatical errors. Laboratory 08/23/18 08:40 Urine Color YELLOW Urine Appearance CLOUDY Urine pH 6.0 Ur Specific [employer] 1.029 Urine Protein 30 H Urine Glucose (UA) >=500 H Urine Ketones NEGATIVE Urine Blood LARGE H Urine Nitrite NEGATIVE Urine Bilirubin NEGATIVE Urine Urobilinogen NEGATIVE Ur Leukocyte Esterase LARGE H Urine WBC (Auto) >182 Urine RBC (Auto) >182 Squamous Epi Cells Auto 29 Urine Mucus (Auto) RARE Urine Ascorbic Acid NEGATIVE 08/23/18 10:17 - Vital Signs Vital signs: Temp Pulse Resp BP Pulse Ox 97.5 F 94 24 H 188/86 H 98 08/23/18 08:51 08/23/18 08:51 08/23/18 08:51 08/23/18 08:51 08/23/18 08:51 - Laboratory Laboratory results interpreted by me: 08/23/18 08:40 Urine Protein 30 H Urine Glucose (UA) >=500 H Urine Blood LARGE H Ur Leukocyte Esterase LARGE H Discharge - Discharge Clinical Impression: Hyperglycemia, Elevated blood pressure reading UTI (urinary tract infection) Qualifiers: Urinary tract infection type: site unspecified Hematuria presence: with hematuria Qualified Code(s): N39.0 - Urinary tract infection, site not specified; R31.9 - Hematuria, unspecified Condition: Stable Disposition: HOME, SELF-CARE Instructions: Urinary Tract Infection ([facility]) Additional Instructions: Please follow-up with your primary care physician regarding your elevated blood glucose levels, please take the prescribed medications as directed. If your symptoms worsen or if you develop pain in your back, vomiting,, or your symptoms are not improving, do not hesitate to return to the emergency department. Prescriptions: Cefdinir 300 mg PO BID #14 capsule Metronidazole [Flagyl 500 mg Tablet] 500 mg PO BID #14 tablet Phenazopyridine HCl [Pyridium 100 Mg Tablet] 100 mg PO TID #9 tablet Referrals: NATE JASON MD [Primary Care Provider] - Follow up as needed
[2018-08-23 09:20] LABS: APPEARANCE,URINE CLOUDY; BILIRUBIN,URINE NEGATIVE (NEGATIVE); COLOR,URINE YELLOW; GLUCOSE, URINE >=500 mg/dL (NEGATIVE); KETONES,URINE NEGATIVE (NEGATIVE); LEUKOCYTE ESTERASE,URINE LARGE (NEGATIVE); NITRITE,URINE NEGATIVE (NEGATIVE); PROTEIN,URINE 30 mg/dL (NEGATIVE); URINE SPECIFIC GRAVITY 1.029; UROBILINOGEN,URINE NEGATIVE mg/dL (<2.0)
[2018-08-23 10:10] VITALS: BP 133/82
== END 2018-08-23 10:12 | disposition home or self-care (01) ==
LOC: ER 08:36
DX: N39.0 Urinary tract infection, site not specified (principal); R31.9 Hematuria, unspecified; I10 Essential (primary) hypertension; E11.65 Type 2 diabetes mellitus with hyperglycemia; R39.198 Other difficulties with micturition; J44.9 Chronic obstructive pulmonary disease, unspecified; R10.30 Lower abdominal pain, unspecified; R30.0 Dysuria; Z87.891 Personal history of nicotine dependence
CPT/HCPCS: 99285; 87086; 82962; 87088; 81001; 87186; A9270 ×2; J3490

== ENCOUNTER → 2018-08-28 | Outpatient (CLI) | payer MEDICARE, MEDICAID ==
--- NOTE | 2018-08-28 12:59 | RADIOLOGY REPORT (SQ) ---
EXAM DESCRIPTION: CHEST 2 VIEWS COMPLETED DATE/TIME: 08/28/2018 11:55 am REASON FOR STUDY: SOB (R06.02) DYSPNEA (R06.09) COMPARISON: 06/13/2018 EXAM PARAMETERS: NUMBER OF VIEWS: two views TECHNIQUE: Digital Frontal and Lateral radiographic views of the chest acquired. RADIATION DOSE: NA LIMITATIONS: none FINDINGS: LUNGS AND PLEURA: No new airspace disease, pleural effusion or pneumothorax. Unchanged ca lcified density over the right peripheral mid lung. MEDIASTINUM AND HILAR STRUCTURES: No masses or contour abnormalities. HEART AND VASCULAR STRUCTURES: Heart normal size. No evidence for failure. BONES: No acute findings. HARDWARE: None in the chest. OTHER: No other significant finding. IMPRESSION: No evidence of acute cardiopulmonary process. TECHNICAL DOCUMENTATION: JOB ID: [id number] [employer]- All Rights Reserved Reading location - IP/workstation name: [email or web address]
== END ==
LOC: RAD 11:21
PROVIDERS: ATTEND Internal Medicine Pulmonary Disease
DX: R06.09 Other forms of dyspnea (principal); R06.02 Shortness of breath
CPT/HCPCS: 71046

== ENCOUNTER 2018-10-20 07:45 | Emergency (ER) | payer MEDICARE, MEDICAID ==
[2018-10-20] MEDS ORDERED: KETOROLAC TROMETHAMINE 60 MG/2 ML SDV IM ONE (09:34)
[2018-10-20 10:23] LABS: A TYPE INFLUENZA AG NEGATIVE (NEGATIVE); B INFLUENZA AG NEGATIVE (NEGATIVE)
[2018-10-20 11:30] LABS: APPEARANCE,URINE CLOUDY; BILIRUBIN,URINE NEGATIVE (NEGATIVE); GLUCOSE, URINE >=500 mg/dL (NEGATIVE); KETONES,URINE NEGATIVE (NEGATIVE); LEUKOCYTE ESTERASE,URINE TRACE (NEGATIVE); NITRITE,URINE NEGATIVE (NEGATIVE); PROTEIN,URINE 30 mg/dL (NEGATIVE); URINE SPECIFIC GRAVITY 1.026; UROBILINOGEN,URINE NEGATIVE mg/dL (<2.0)
[2018-10-20 11:31] LABS: COLOR,URINE PINK
--- NOTE | 2018-10-20 12:52 | RADIOLOGY REPORT (SQ) ---
EXAM DESCRIPTION: CHEST SINGLE VIEW COMPLETED DATE/TIME: 10/20/2018 12:43 pm REASON FOR STUDY: Dyspnea for 30 minutes COMPARISON: 08/28/2018 EXAM PARAMETERS: NUMBER OF VIEWS: One view. TECHNIQUE: Single frontal radiographic view of the chest acquired. RADIATION DOSE: NA LIMITATIONS: None. FINDINGS: LUNGS AND PLEURA: No opacities, masses or pneumothorax. No pleural effusion. MEDIASTINUM AND HILAR STRUCTURES: No masses. Contour normal. HEART AND VASCULAR STRUCTURES: Heart normal in size. Normal vasculature. BONES: No acute findings. HARDWARE: None in the chest. OTHER: No other significant finding. IMPRESSION: NO ACUTE RADIOGRAPHIC FINDING IN THE CHEST. TECHNICAL DOCUMENTATION: JOB ID: [id number] [employer]- All Rights Reserved Reading location - IP/workstation name: [email or web address]
--- NOTE | 2018-10-20 13:19 | ER Document Report ---
ED General - General Chief Complaint: Abdominal Pain Stated Complaint: ABDOMINAL PAIN Time Seen by Provider: 10/20/18 09:18 Primary Care Provider: NATE JASON MD [Primary Care Provider] - Follow up as needed TRAVEL OUTSIDE OF THE [place] IN LAST 30 DAYS: No - HPI Notes: Patient presents emergency department for evaluation of abdominal pain with radiation to the chest. She states this started early this morning. She is also had a sore throat and cough since yesterday. She states that the pain that she is having in her abdomen is similar to the pain she has had in the past with a "kidney infection." She states he never has any urinary symptoms with those. She states she felt as if she has been hot and cold but denies any tatyana fevers. She did not check her temperature. Normal bowel movements. No nausea or vomiting. No other associated symptoms. - Related Data Allergies/Adverse Reactions: clarithromycin [From Biaxin] Allergy (Mild, Verified 10/20/18 07:50) Generalized rash Penicillins Allergy (Mild, Verified 10/20/18 07:50) amoxicillin [From Augmentin] Adverse Reaction (Mild, Verified 10/20/18 07:50) clavulanic acid [From Augmentin] Adverse Reaction (Mild, Verified 10/20/18 07:50) Past Medical History - General Information source: Patient - Social History Smoking Status: Former Smoker Frequency of alcohol use: None Drug Abuse: None Family History: Arthritis, CAD, CVA, DM, Hyperlipidemia, Hypertension, Malignancy, Thyroid Disfunction Patient has suicidal ideation: No Patient has homicidal ideation: No - Past Medical History Cardiac Medical History: Reports: Hx Hypertension Denies: Hx Coronary Artery Disease, Hx Heart Attack Pulmonary Medical History: Reports: Hx Asthma, Hx Bronchitis, Hx COPD Denies: Hx Pneumonia Neurological Medical History: Denies: Hx Cerebrovascular Accident, Hx Seizures Endocrine Medical History: Reports: Hx Diabetes Mellitus Type 2 Renal/ Medical History: Denies: Hx Peritoneal Dialysis GI Medical History: Reports: Hx Gastroesophageal Reflux Disease Musculoskeletal Medical History: Reports Hx Arthritis, Reports Hx Musculoskeletal Trauma Psychiatric Medical History: Reports: Hx Anxiety, Hx Depression, Hx Post Traumatic Stress Disorder Past Surgical History: Reports: Hx Cardiac Catheterization - 01/17/2017, Hx Section, Hx Cholecystectomy, Hx Orthopedic Surgery - LEFT SHOULDER - Immunizations Immunizations up to date: No Hx Diphtheria, Pertussis, Tetanus Vaccination: Yes Hx Pneumococcal Vaccination: 09/08/09 Review of Systems - Review of Systems Constitutional: Fever, Malaise EENT: See HPI Cardiovascular: See HPI Respiratory: No symptoms reported Gastrointestinal: See HPI Musculoskeletal: No symptoms reported Skin: No symptoms reported Neurological/Psychological: No symptoms reported Physical Exam - Vital signs Vitals: Temp Pulse Resp BP Pulse Ox 98.5 F 87 16 144/92 H 95 10/20/18 07:47 10/20/18 07:47 10/20/18 07:47 10/20/18 07:47 10/20/18 07:47 - Notes Notes: Vital signs reviewed, please refer to chart. Patient is normocephalic, atraumatic. Pupils equal round, reactive to light. Pharynx is mildly erythematous but without exudate. Neck is supple without meningismus. Heart is regular rate and rhythm. Lungs are clear to auscultation bilaterally. Abdomen is soft, generalized tenderness but no rebound or guarding. No peritoneal signs. Extremities without cyanosis, clubbing, edema. Peripheral pulses are equal. Skin is warm and dry. Patient is awake, alert, neurological exam is nonfocal. Course - Re-evaluation Re-evalutation: 10/20/18 13:17 Patient presents emergency department for evaluation. During the course of her stay here she has serial abdominal exams and they are found to be unremarkable. Her rapid strep and influenza swabs were negative. She complained of difficulty breathing during the course of her states the chest x-ray was ordered. This was found to be negative, although I am sure limited by body habitus. At this point I did have a clear etiology for her symptoms. She does not have any urinary tract infection. She is currently menstruation, explaining the blood. I did send it for culture given her symptoms. At this point she has no other associated symptoms. I believe she has a viral illness of some sort, likely upper respiratory infection. She is to follow-up with primary care, return to the emergency department with worsening or new concerning symptoms. - Vital Signs Vital signs: Temp Pulse Resp BP Pulse Ox 98.5 F 87 16 144/92 H 95 10/20/18 07:47 10/20/18 07:47 10/20/18 07:47 10/20/18 07:47 10/20/18 07:47 - Laboratory Laboratory results interpreted by me: 10/20/18 11:06 Urine Protein 30 H Urine Glucose (UA) >=500 H Urine Blood LARGE H Ur Leukocyte Esterase TRACE H Discharge - Discharge Clinical Impression: Upper respiratory infection, Abdominal pain Condition: Stable Instructions: Abdominal Pain ([facility]), Upper Respiratory Illness ([facility]) Additional Instructions: Stay well-hydrated. Tylenol or ibuprofen as needed for pain. Follow-up with your doctor this week. Return to the emergency department with worsening or new concerning symptoms. Your urine was sent for culture. You will be contacted if that should become positive. Referrals: NATE JASON MD [Primary Care Provider] - Follow up as needed
[2018-10-20 14:18] VITALS: BP 137/69
== END 2018-10-20 14:19 | disposition home or self-care (01) ==
LOC: ER 07:45
DX: R10.9 Unspecified abdominal pain (principal); R07.9 Chest pain, unspecified; J02.9 Acute pharyngitis, unspecified; R05 Cough; Z87.891 Personal history of nicotine dependence; J06.9 Acute upper respiratory infection, unspecified; R50.9 Fever, unspecified; R53.81 Other malaise; I10 Essential (primary) hypertension; J44.9 Chronic obstructive pulmonary disease, unspecified; E11.9 Type 2 diabetes mellitus without complications
CPT/HCPCS: 94640; 99285; 87070; 87086; 87880; 81025; 81001; 87804; 71045; J1885

== ENCOUNTER → 2018-11-07 | Outpatient (CLI) | payer MEDICARE, MEDICAID ==
--- NOTE | 2018-11-07 14:51 | WOMENS IMAGING REPORT ---
EXAM DESCRIPTION: BILAT SCREENING MAMMO W/CAD COMPLETED DATE/TIME: 11/07/2018 2:21 pm REASON FOR STUDY: Z12.31 ENCOUNTER FOR SCREENING MAMMOGRAM FOR MALIGNANT NEOPLASM OF BREAST Z12.31 ENCNTR SCREEN MAMMOGRAM FOR MALIGNANT NEOPLASM OF SACHA COMPARISON: None. TECHNIQUE: Standard craniocaudal and mediolateral oblique views of each breast recorded using digita l acquisition. LIMITATIONS: None. FINDINGS: No masses, calcifications or architectural distortion. No areas of suspicion. Read with the assistance of CAD. .[facility] - R2 Cenova Version 1.3 .[facility] - R2 Cenova Version 2.1 .[facility] - R2 Cenova Version 2.4 .[facility] [place] Cenova Version 2.4 .[facility] - R2 Tug Master Version 9.2 IMPRESSION: NORMAL MAMMOGRAM. BIRADS 1. BREAST DENSITY: b. There are scattered areas of fibroglandular density. BIRAD: 1 NEGATIVE RECOMMENDATION: ROUTINE SCREENING COMMENT: The patient has been notified of the results by letter per SA requirements. Additional no tification policies are in place for contacting patient with suspicious or incomplete findings. Quality ID #[id number]: The [employer] recommends an annual screening mammogram for women aged 40 years or over. This facility utilizes a reminder system to ensure that all patients receive reminder letters, and/or direct phone calls for appointments. This includes reminders for routine scr eening mammograms, diagnostic mammograms, or other Breast Imaging Interventions when appropriate. Th is patient will be placed in the appropriate reminder system. The [employer] (ACR) has developed recommendations for screening MRI of the breast s in certain patient populations, to be used in conjunction with mammography. Breast MRI surveillanc e may be appropriate for women with more than 20% lifetime risk of developing breast cancer as deter mined by genetic testing, significant family history of the disease, or history of mantle radiation f or Hodgkins Disease. ACR Practice Guidelines 2008. TECHNICAL DOCUMENTATION: FINDING NUMBER: (1) ASSESSMENT: (1) JOB ID: [id number] [email or web address]- All Rights Reserved Reading location - IP/workstation name: [email or web address]
== END ==
LOC: WI 13:56
PROVIDERS: ATTEND Internal Medicine
DX: Z12.31 Encounter for screening mammogram for malignant neoplasm of breast (principal)
CPT/HCPCS: 77067

== ENCOUNTER 2019-04-07 12:43 | Emergency (ER) | payer MEDICARE, MEDICAID ==
--- NOTE | 2019-04-07 13:45 | ER Document Report ---
ED Medical Screen (RME) - General Chief Complaint: Abdominal Pain Stated Complaint: ABDOMINAL PAIN Time Seen by Provider: 04/07/19 13:38 Primary Care Provider: NATE JASON MD [Primary Care Provider] - Follow up as needed Mode of Arrival: Ambulatory Information source: Patient Notes: Patient presents complaining of lower abdominal pain that wraps around to the low back area for the past 3 days. Patient states passing a blood clot 2 days ago. Patient also complains of some urinary incontinence that she has been having for some time. Patient reports nausea but denies any vomiting or diarrhea. No fever. hx: Anxiety, depression, PTSD, asthma, COPD, cholecystectomy, , orthopedic surgery. I have greeted and performed a rapid initial assessment of this patient. A comprehensive ED assessment and evaluation of the patient, analysis of test results and completion of the medical decision making process will be conducted by additional ED providers. TRAVEL OUTSIDE OF THE [place] IN LAST 30 DAYS: No - Related Data Allergies/Adverse Reactions: clarithromycin [From Biaxin] Allergy (Mild, Verified 04/07/19 12:44) Generalized rash Penicillins Allergy (Mild, Verified 04/07/19 12:44) amoxicillin [From Augmentin] Adverse Reaction (Mild, Verified 04/07/19 12:44) clavulanic acid [From Augmentin] Adverse Reaction (Mild, Verified 04/07/19 12:44) Past Medical History - Social History Frequency of alcohol use: None Drug Abuse: None - Past Medical History Cardiac Medical History: Reports: Hx Hypertension Denies: Hx Coronary Artery Disease, Hx Heart Attack Pulmonary Medical History: Reports: Hx Asthma, Hx Bronchitis, Hx COPD Denies: Hx Pneumonia Neurological Medical History: Denies: Hx Cerebrovascular Accident, Hx Seizures Endocrine Medical History: Reports: Hx Diabetes Mellitus Type 2 Renal/ Medical History: Denies: Hx Peritoneal Dialysis GI Medical History: Reports: Hx Gastroesophageal Reflux Disease Musculoskeltal Medical History: Reports Hx Arthritis, Reports Hx Musculoskeletal Trauma Psychiatric Medical History: Reports: Hx Anxiety, Hx Depression - anxiety/ptsd, Hx Post Traumatic Stress Disorder Past Surgical History: Reports: Hx Cardiac Catheterization - 01/17/2017, Hx Section, Hx Cholecystectomy, Hx Orthopedic Surgery - LEFT SHOULDER - Immunizations Immunizations up to date: No Hx Diphtheria, Pertussis, Tetanus Vaccination: Yes History of Influenza Vaccine for 05/2017 - 10/2017 Season: No Physical Exam - Vital signs Vitals: Temp Pulse Resp BP Pulse Ox 98.5 F 99 17 143/96 H 90 L 04/07/19 12:59 04/07/19 12:59 04/07/19 12:59 04/07/19 12:59 04/07/19 12:59 - General General appearance: Appears well, Alert Notes: Morbidly obese, lower pelvic tenderness Course - Vital Signs Vital signs: Temp Pulse Resp BP Pulse Ox 98.5 F 99 17 143/96 H 90 L 04/07/19 12:59 04/07/19 12:59 04/07/19 12:59 04/07/19 12:59 04/07/19 12:59 Doctor's Discharge - Discharge Referrals: NATE JASON MD [Primary Care Provider] - Follow up as needed
[2019-04-07] MEDS ORDERED: METOCLOPRAMIDE HCL INJ/PF 10 MG/2 ML SDV IV ONE (15:00)
[2019-04-07] MEDS ORDERED: DICYCLOMINE HCL 20 MG TABLET PO ONE (15:00)
--- NOTE | 2019-04-07 15:05 | ER Document Report ---
ED General - General Chief Complaint: Abdominal Pain Stated Complaint: ABDOMINAL PAIN Time Seen by Provider: 04/07/19 13:38 Primary Care Provider: NATE JASON MD [Primary Care Provider] - Follow up as needed Mode of Arrival: Ambulatory TRAVEL OUTSIDE OF THE [place] IN LAST 30 DAYS: No - HPI Notes: 49-year-old female history of type 2 diabetes, depression, presents with right lower pelvic pain. Describes 3 to 4 days of waxing and waning intermittent crampy sharp right lower pelvic pain that radiates toward her back. No tatyana vaginal bleeding but had one episode where she "passed a clot". She has regular menses and cannot tell when her last normal period was. Nausea no vomiting. No fever, chills or sweats. No significant unplanned weight loss. No history of malignancy. Moderate intensity, gradual onset, nonradiating except to her back occasionally. No other modifying factors, no other associated symptoms, no other provocative or palliative factors. - Related Data Allergies/Adverse Reactions: clarithromycin [From Biaxin] Allergy (Mild, Verified 04/07/19 12:44) Generalized rash Penicillins Allergy (Mild, Verified 04/07/19 12:44) amoxicillin [From Augmentin] Adverse Reaction (Mild, Verified 04/07/19 12:44) clavulanic acid [From Augmentin] Adverse Reaction (Mild, Verified 04/07/19 12:44) Past Medical History - General Information source: Patient - Social History Smoking Status: Former Smoker Frequency of alcohol use: None Drug Abuse: None Family History: Arthritis, CAD, CVA, DM, Hyperlipidemia, Hypertension, Malignancy, Thyroid Disfunction Patient has suicidal ideation: No Patient has homicidal ideation: No - Past Medical History Cardiac Medical History: Reports: Hx Hypertension Denies: Hx Coronary Artery Disease, Hx Heart Attack Pulmonary Medical History: Reports: Hx Asthma, Hx Bronchitis, Hx COPD Denies: Hx Pneumonia Neurological Medical History: Denies: Hx Cerebrovascular Accident, Hx Seizures Endocrine Medical History: Reports: Hx Diabetes Mellitus Type 2 Renal/ Medical History: Denies: Hx Peritoneal Dialysis GI Medical History: Reports: Hx Gastroesophageal Reflux Disease Musculoskeletal Medical History: Reports Hx Arthritis, Reports Hx Mu sculoskeletal Trauma Psychiatric Medical History: Reports: Hx Anxiety, Hx Depression - anxiety/ptsd, Hx Post Traumatic Stress Disorder Past Surgical History: Reports: Hx Cardiac Catheterization - 01/17/2017, Hx Section, Hx Cholecystectomy, Hx Orthopedic Surgery - LEFT SHOULDER - Immunizations Immunizations up to date: No Hx Diphtheria, Pertussis, Tetanus Vaccination: Yes Hx Pneumococcal Vaccination: 09/08/09 Review of Systems - Review of Systems Notes: Review of systems as in the history of present illness, otherwise negative x 10 systems. Physical Exam - Vital signs Vitals: Temp Pulse Resp BP Pulse Ox 98.5 F 99 17 143/96 H 90 L 04/07/19 12:59 04/07/19 12:59 04/07/19 12:59 04/07/19 12:59 04/07/19 12:59 - Notes Notes: General: Well developed . HEENT: Normocephalic, atraumatic. Pupils equal round reactive to light. No JVD. Chest: No trauma. Respiratory: Good air exchange, normal excursion. Cardiac: Regular rhythm. No murmurs or gallops. Abdomen: Soft, obese, nondistended. On distracted exam there is mild right lower pelvic tenderness. No external skin change. Back: No asymmetry or gross abnormality. Motor: Grossly normal power and tone. Neurologic: Alert, nonfocal. Cranial nerves II-12 are intact. Sensation intact. Vascular: Well perfused. Normal peripheral pulses. Skin: No petechiae or purpura. Course - Re-evaluation Re-evalutation: 04/07/19 15:05 49-year-old female with 3 to 4 days of gradual onset right lower pelvic pain. Patient was evaluated by the [facility] provider prior to my evaluation. Studies / interventions have been ordered by this provider and may still be pending. Consider underlying structural, gynecologic, urinary or metabolic etiology. Plan proceed with basic labs, analgesics, antiemetics, pelvic exam, reassess 04/07/19 18:37 Labs reviewed. CBC grossly unremarkable, chemistries LFTs and urine unremarkable except for hematuria. Patient's been advised of the need to follow-up with her primary care doctor for hematuria although this may be related to her vaginal bleeding. Transvaginal ultrasound shows a benign right ovarian cyst. Pelvic examination performed by myself shows moderate amount of homogenous white discharge, no significant active bleeding, no mass adnexal tenderness or CMT. Patient received additional Tylenol in the ED, so exam showed benign abdomen. Believe she is safe discharge home will follow close with her primary care doctor, return if worsening. - Vital Signs Vital signs: Temp Pulse Resp BP Pulse Ox 98.5 F 99 17 143/96 H 90 L 04/07/19 12:59 04/07/19 12:59 04/07/19 12:59 04/07/19 12:59 04/07/19 12:59 - Laboratory Result Diagrams: 04/07/19 15:03 04/07/19 15:03 Laboratory results interpreted by me: 04/07/19 04/07/19 04/07/19 14:25 15:03 15:03 WBC 10.6 H RDW 18.3 H Seg Neutrophils % 86.8 H Lymphocytes % 7.4 L Absolute Neutrophils 9.2 H Sodium 136.7 L Glucose 193 H Urine Glucose (UA) >=500 H Urine Blood MODERATE H Discharge - Discharge Clinical Impression: Pelvic pain Condition: Stable Disposition: HOME, SELF-CARE Instructions: Abdominal Pain ([facility]) Prescriptions: Dicyclomine HCl [Bentyl 20 mg Tablet] 20 mg PO Q8 #12 tablet Referrals: NATE JASON MD [Primary Care Provider] - Follow up tomorrow
[2019-04-07 15:15] LABS: ABSOLUTE BASOPHILS # (AUTO) 0.1 10^3/uL (0.0-0.2); ABSOLUTE EOSINOPHILS # (AUTO) 0.1 10^3/uL (0.0-0.6); ABSOLUTE LYMPHOCYTES (AUTO) 0.8 10^3/uL (0.5-4.7); ABSOLUTE MONOCYTES (AUTO) 0.5 10^3/uL (0.1-1.4); ABSOLUTE NEUT (AUTO) 9.2 10^3/uL (1.7-8.2); BASOPHILS % (AUTO) 0.8 % (0-2); EOSINOPHILS % (AUTO) 0.6 % (0-6); HEMATOCRIT 39.3 % (36.0-47.0); HEMOGLOBIN 12.6 g/dL (12.0-15.5); LYMPHOCYTES % (AUTO) 7.4 % (13-45); MEAN CORPUSCULAR HEMOGLOBIN 27.2 pg (27.0-33.4); MEAN CORPUSCULAR HGB CONC 32.1 g/dL (32.0-36.0); MEAN CORPUSCULAR VOLUME 85 fl (80-97); MONOCYTES % (AUTO) 4.4 % (3-13); PLATELET COUNT 230 10^3/uL (150-450); RED BLOOD COUNT 4.64 10^6/uL (3.72-5.28); RED CELL DISTRIBUTION WIDTH 18.3 % (11.5-14.0); SEGMENTED NEUTROPHILS % (AUTO) 86.8 % (42-78); TOTAL CELLS COUNTED % (AUTO) 100 %; WHITE BLOOD COUNT 10.6 10^3/uL (4.0-10.5)
[2019-04-07 15:37] LABS: ALBUMIN 3.8 g/dL (3.5-5.0); ALKALINE PHOSPHATASE 92 U/L (38-126); ANION GAP 11 (5-19); ASPARTATE AMINO TRANSFERASE 22 U/L (14-36); BILIRUBIN,DIRECT 0.4 mg/dL (0.0-0.4); BILIRUBIN,TOTAL 0.7 mg/dL (0.2-1.3); BLOOD UREA NITROGEN 13 mg/dL (7-20); CALCIUM 9.2 mg/dL (8.4-10.2); CARBON DIOXIDE 25 mmol/L (22-30); CHLORIDE 101 mmol/L (98-107); GLUCOSE 193 mg/dL (75-110); POTASSIUM 4.1 mmol/L (3.6-5.0); TOTAL PROTEIN 6.7 g/dL (6.3-8.2)
[2019-04-07 15:41] LABS: APPEARANCE,URINE CLEAR; BILIRUBIN,URINE NEGATIVE (NEGATIVE); COLOR,URINE YELLOW; GLUCOSE, URINE >=500 mg/dL (NEGATIVE); KETONES,URINE NEGATIVE (NEGATIVE); LEUKOCYTE ESTERASE,URINE NEGATIVE (NEGATIVE); NITRITE,URINE NEGATIVE (NEGATIVE); PROTEIN,URINE NEGATIVE (NEGATIVE); UROBILINOGEN,URINE NEGATIVE mg/dL (<2.0)
[2019-04-07] MEDS ORDERED: ACETAMINOPHEN 325 MG TABLET PO ONE (16:49)
[2019-04-07 16:59] LABS: CHLAM PCR NOT DETECTED (NOT DETECT)
--- NOTE | 2019-04-07 18:08 | RADIOLOGY REPORT (SQ) ---
EXAM DESCRIPTION: U/S NON OB PEL TV W/DOPPLER COMPLETED DATE/TIME: 04/07/2019 5:55 pm REASON FOR STUDY: pelvic pain, vaginal bleeding COMPARISON: 12/11/2013 TECHNIQUE: Dynamic and static grayscale images acquired of the pelvis via transvaginal approach and recorded on PACS. Additional selected color Doppler and spectral images recorded. LIMITATIONS: None. FINDINGS: UTERUS: Contour normal. No mass. ENDOMETRIAL STRIPE: Not well seen. Normal thickness. CERVIX: 2.4 cm. No nabothian cysts. RIGHT OVARY AND DOPPLER: Normal size. No worrisome masses. Normal arterial vascular flow without evid ence for torsion. There is a 2.2 cm cyst. LEFT OVARY AND DOPPLER: Normal size. No worrisome masses. Normal arterial vascular flow without evide nce for torsion. FREE FLUID: None noted. OTHER: No other significant finding. MEASUREMENTS: UTERUS: 9.1 x 3.6 x 3.9 cm. ENDOMETRIAL STRIPE: 3 mm. RIGHT OVARY: 2.9 x 3.2 x 2.4 cm. LEFT OVARY: 3.1 x 2.3 x 2.1 cm. IMPRESSION: Normal study. There is a 2.2 cm cyst on the right ovary that is almost certainly benign . No additional imaging is required for this. TECHNICAL DOCUMENTATION: JOB ID: [id number] [employer]- All Rights Reserved Rev Reading location - IP/workstation name: [email or web address]
[2019-04-07 19:00] VITALS: BP 117/69
== END 2019-04-07 19:00 | disposition home or self-care (01) ==
LOC: ER 12:43
DX: N83.201 Unspecified ovarian cyst, right side (principal); R10.2 Pelvic and perineal pain; N89.8 Other specified noninflammatory disorders of vagina; R31.9 Hematuria, unspecified; E11.9 Type 2 diabetes mellitus without complications; R11.0 Nausea; I10 Essential (primary) hypertension; J44.9 Chronic obstructive pulmonary disease, unspecified; Z88.1 Allergy status to other antibiotic agents; Z88.0 Allergy status to penicillin; Z87.891 Personal history of nicotine dependence
CPT/HCPCS: 99284; 96374; 36415; 84703; 85025; 80053; 81001; 87491; 87591; 76830; 93976; A9270 ×2; J2765; J3490

== ENCOUNTER 2019-05-15 15:45 | Emergency (ER) | payer OTHER, MEDICARE, MEDICAID ==
[2019-05-15] MEDS ORDERED: IBUPROFEN 600 MG TABLET PO ONE (16:18)
[2019-05-15] MEDS ORDERED: ACETAMINOPHEN 325 MG TABLET PO ONE (16:18)
[2019-05-15] MEDS ORDERED: ONDANSETRON 4 MG TAB.RAPDIS PO ONE (16:27)
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
[2019-05-15] MEDS ORDERED: ONDANSETRON ODT 4 MG TAB (6 TAB/ER DISP) PO PRN (17:44)
[2019-05-15 17:55] VITALS: BP 133/85
== END 2019-05-15 17:55 | disposition home or self-care (01) ==
LOC: ER 15:45
DX: S09.90XA Unspecified injury of head, initial encounter (principal); M25.571 Pain in right ankle and joints of right foot; M25.572 Pain in left ankle and joints of left foot; M25.561 Pain in right knee; M25.562 Pain in left knee; M25.512 Pain in left shoulder; M54.2 Cervicalgia; R11.0 Nausea; V87.7XXA Person injured in collision between other specified motor vehicles (traffic), initial encounter; I10 Essential (primary) hypertension; J44.9 Chronic obstructive pulmonary disease, unspecified; E11.9 Type 2 diabetes mellitus without complications
CPT/HCPCS: 73030; 73560; 73610; S0119; 99284

== ENCOUNTER 2020-04-30 06:53 | Emergency (ER) | payer MEDICARE, MEDICAID ==
[2020-04-30] MEDS ORDERED: NORMAL SALINE 1000 ML 1,000 ML IV ONE (08:59)
[2020-04-30] MEDS ORDERED: FAMOTIDINE INJ/PF 20 MG/2 ML SDV IV ONE (09:05)
[2020-04-30] MEDS ORDERED: ONDANSETRON HCL INJ/PF 4 MG/2 ML SDV IV ONE (09:05)
[2020-04-30 09:14] LABS: ALBUMIN 4.3 g/dL (3.5-5.0); ALKALINE PHOSPHATASE 118 U/L (38-126); ANION GAP 11 (5-19); ASPARTATE AMINO TRANSFERASE 115 U/L (14-36); BILIRUBIN,DIRECT 0.4 mg/dL (0.0-0.4); BILIRUBIN,TOTAL 1.2 mg/dL (0.2-1.3); BLOOD UREA NITROGEN 3 mg/dL (7-20); CALCIUM 9.8 mg/dL (8.4-10.2); CARBON DIOXIDE 26 mmol/L (22-30); CHLORIDE 102 mmol/L (98-107); GLUCOSE 130 mg/dL (75-110); POTASSIUM 4.2 mmol/L (3.6-5.0); TOTAL PROTEIN 7.6 g/dL (6.3-8.2)
[2020-04-30 10:17] LABS: ABSOLUTE BASOPHILS # (AUTO) 0.1 10^3/uL (0.0-0.2); ABSOLUTE EOSINOPHILS # (AUTO) 0.1 10^3/uL (0.0-0.6); ABSOLUTE LYMPHOCYTES (AUTO) 1.7 10^3/uL (0.5-4.7); ABSOLUTE MONOCYTES (AUTO) 0.6 10^3/uL (0.1-1.4); BASOPHILS % (AUTO) 0.7 % (0-2); EOSINOPHILS % (AUTO) 1.8 % (0-6); HEMATOCRIT 46.3 % (36.0-47.0); HEMOGLOBIN 15.8 g/dL (12.0-15.5); LYMPHOCYTES % (AUTO) 22.7 % (13-45); MEAN CORPUSCULAR HEMOGLOBIN 29.9 pg (27.0-33.4); MEAN CORPUSCULAR VOLUME 88 fl (80-97); MONOCYTES % (AUTO) 8.3 % (3-13); PLATELET COUNT 294 10^3/uL (150-450); RED BLOOD COUNT 5.27 10^6/uL (3.72-5.28); RED CELL DISTRIBUTION WIDTH 14.4 % (11.5-14.0); SEGMENTED NEUTROPHILS % (AUTO) 66.5 % (42-78); TOTAL CELLS COUNTED % (AUTO) 100 %; WHITE BLOOD COUNT 7.4 10^3/uL (4.0-10.5)
--- NOTE | 2020-04-30 10:21 | RADIOLOGY REPORT (SQ) ---
EXAM DESCRIPTION: ACUTE ABDOMEN SERIES IMAGES COMPLETED DATE/TIME: 04/30/2020 8:54 am REASON FOR STUDY: abd pain/diarrhea COMPARISON: None. NUMBER OF VIEWS: Three views. TECHNIQUE: PA chest, supine abdomen and upright/decubitus abdomen radiographic images acquired. LIMITATIONS: None. FINDINGS: CHEST: Lungs clear of infiltrates. Pleural effusion. Heart has normal size. FREE AIR: None. No abnormal gas collections. BOWEL GAS PATTERN: Few scattered small bowel loops with air fluid levels. No distended large or small bowel loops. CALCIFICATIONS: No suspicious calcifications. HARDWARE: None in the abdomen. SOFT TISSUES: No gross mass or suggestion of organomegaly. BONES: No acute fracture. No worrisome bone lesions. OTHER: No other significant finding. IMPRESSION: NONSPECIFIC BOWEL GAS PATTERN WITHOUT EVIDENCE FOR OBSTRUCTION. No acute cardiopulmonar y disease. TECHNICAL DOCUMENTATION: JOB ID: [id number] [employer]- All Rights Reserved Reading location - IP/workstation name: [email or web address]
[2020-04-30 15:42] LABS: C DIFFICILE GDH NEGATIVE (NEGATIVE)
--- NOTE | 2020-04-30 16:05 | RADIOLOGY REPORT (SQ) ---
EXAM DESCRIPTION: CT ABD/PELVIS WITH IV ORAL IMAGES COMPLETED DATE/TIME: 04/30/2020 3:47 pm REASON FOR STUDY: abd pain/elevated LFTs/diarrhea/nausea Right lower quadrant pain. COMPARISON: CT abdomen and pelvis 07/31/2018, 01/20/2018. Abdominal series 04/30/2020. TECHNIQUE: CT scan of the abdomen and pelvis performed using helical scanning technique with dynamic intravenous contrast injection. No oral contrast. Images reviewed with lung, soft tissue, and bone windows. Reconstructed coronal and sagittal MPR images reviewed. Delayed images for evaluation of the urinary system also acquired. All images stored on PACS. All CT scanners at this facility use dose modulation, iterative reconstruction, and/or weight based d osing when appropriate to reduce radiation dose to as low as reasonably achievable (ALARA). [facility]: Dose Right [facility]: CareDose [facility]: Dose Right [facility]: Teradose 4D [facility]: [employer] CONTRAST TYPE AND DOSE: contrast/concentration: Isovue 350.00 mmol/ml; Total Contrast Delivered: 100 .0 ml; Total Saline Delivered: 72.0 ml RENAL FUNCTION: Creatinine 0.90 RADIATION DOSE: CT Rad equipment meets quality standard of care and radiation dose reduction techniq ues were employed. CTDIvol: 19.2 - 21.1 mGy. DLP: 2061 mGy-cm.. LIMITATIONS: None. FINDINGS: LOWER CHEST: Mild atelectasis at the bilateral lower lobes. No pleural effusion. LIVER: The liver is mildly enlarged measuring 18 cm in craniocaudal diameter. There is diffuse decre ased attenuation most consistent with fatty infiltration. No dilated ducts. SPLEEN: Normal size. PANCREAS: No adjacent inflammation or peripancreatic fluid collections. Pancreatic duct not dilated. GALLBLADDER: Surgically absent. ADRENAL GLANDS: No significant masses or asymmetry. RIGHT KIDNEY AND URETER: Subcentimeter hypodensity at the inferior pole of the right kidney is too sm all to be adequately characterized. No significant calcifications. No hydronephrosis or hydrouret er. LEFT KIDNEY AND URETER: No significant calcifications. No hydronephrosis or hydroureter. AORTA AND VESSELS: No abdominal aortic aneurysm or evidence for acute dissection. 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 RETROPERITONEUM: No retroperitoneal adenopathy, hemorrhage or masses. BOWEL AND PERITONEAL CAVITY: No dilated bowel loops or inflammatory changes. Oral contrast is presen t at the small bowel. No free fluid or free air. APPENDIX: Normal. PELVIS: The urinary bladder is distended. There is no pelvic mass. No free fluid ABDOMINAL WALL: There is a small fat containing paraumbilical hernia. BONES: No significant or acute findings. IMPRESSION: 1. No acute findings. 2. Mild hepatomegaly. Fatty infiltration of the liver. 3. 11 mm peripherally calcified aneurysm at the splenic artery. TECHNICAL DOCUMENTATION: JOB ID: [id number] AK- Quality ID # [id number]: Final reports with documentation of one or more dose reduction techniques (e.g., Au tomated exposure control, adjustment of the mA and/or kV according to patient size, use of iterative reconstruction technique) 2010 [employer]- All Rights Reserved Reading location - IP/workstation name: [email or web address]
--- NOTE | 2020-04-30 16:54 | ER Document Report ---
Entered by KEKE FISHMAN SCRIBE 04/30/20 0823 Acting as scribe for:STACY BAH MD ED GI/ - General Chief Complaint: Diarrhea Stated Complaint: NAUSEA,DIARRHEA Time Seen by Provider: 04/30/20 07:37 Primary Care Provider: NATE JASON MD [Primary Care Provider] - Follow up as needed Information source: Patient Notes: This 50 year old female patient presents to the emergency department today with complaints of diarrhea for the last few days. Patient states that she went to [employer] and ate chicken cynthia pizza, salad, and cinnamon rolls and developed diarrhea approximately 1 hour after. Patient states that she was at this pizza place with a friend who also developed diarrhea after eating. She has a history of diarrhea type IBS and is status post cholecystectomy so diarrhea is common for her. She reports that the diarrhea is yellow in color an d has a foul smell. She complains of nausea, generalized body aches, and headaches but denies fevers, chills, sore throat, known COVID contact, or change in taste or smell. TRAVEL OUTSIDE OF THE [place] IN LAST 30 DAYS: No - Related Data Allergies/Adverse Reactions: clarithromycin [From Biaxin] Allergy (Mild, Verified 04/30/20 07:28) Generalized rash Penicillins Allergy (Mild, Verified 04/30/20 07:28) amoxicillin [From Augmentin] Adverse Reaction (Mild, Verified 04/30/20 07:28) clavulanic acid [From Augmentin] Adverse Reaction (Mild, Verified 04/30/20 07:28) Past Medical History - General Information source: Patient - Social History Smoking Status: Former Smoker - 2013 Frequency of alcohol use: None Drug Abuse: None Lives with: Family Family History: Arthritis, CAD, CVA, DM, Hyperlipidemia, Hypertension, Mal ignancy, Thyroid Disfunction Patient has homicidal ideation: No - Past Medical History Cardiac Medical History: Reports: Hx Hypertension Pulmonary Medical History: Reports: Hx Asthma, Hx COPD, Hx Pneumonia Endocrine Medical History: Reports: Hx Diabetes Mellitus Type 2 GI Medical History: Reports: Hx Gastroesophageal Reflux Disease Musculoskeletal Medical History: Reports Hx Arthritis, Reports Hx Musculoskeletal Trauma Psychiatric Medical History: Reports: Hx Anxiety, Hx Depression, Hx Post Traumatic Stress Disorder Past Surgical History: Reports: Hx Cardiac Catheterization - 01/17/2017, Hx Section, Hx Cholecystectomy, Hx Orthopedic Surgery - LEFT SHOULDER - Immunizations Immunizations up to date: No Hx Diphtheria, Pertussis, Tetanus Vaccination: No Hx Pneumococcal Vaccination: 08/26/17 Review of Systems - Review of Systems Constitutional: denies: Chills, Fever EENT: denies: Throat pain Cardiovascular: No symptoms reported Respiratory: No symptoms reported Gastrointestinal: See HPI, Diarrhea, Nausea. denies: Vomiting Genitourinary: No symptoms reported Female Genitourinary: No symptoms reported Musculoskeletal: See HPI, Muscle pain Skin: No symptoms reported Hematologic/Lymphatic: No symptoms reported Neurological/Psychological: See HPI, Headaches -: Yes All other systems reviewed and negative Physical Exam - Vital signs Vitals: Temp Pulse Resp BP Pulse Ox 99.1 F 114 H 22 H 140/88 H 96 04/30/20 07:00 04/30/20 07:00 04/30/20 07:00 04/30/20 07:00 04/30/20 07:00 - Notes Notes: Physical Exam: General: Alert, morbidly obese. HEENT: Normocephalic. Atraumatic. PERRL. Extraocular movements intact. Oropharynx clear. Neck: Supple. Non-tender. Respiratory: No respiratory distress. Clear and equal breath sounds bilaterally. Cardiovascular: Regular rate and rhythm. Abdominal: Morbidly obese. Non-tender. No distension. Normal Bowel Sounds. Back: No gross abnormalities. Extremities: Moves all four extremities. Upper extremities: Normal inspection. Normal ROM. Lower extremities: Normal inspection. No edema. Normal ROM. Neurological: Normal cognition. AAOx4. Normal speech. Psychological: Normal affect. Normal Mood. Skin: Warm. Dry. Normal color. Course - Re-evaluation Re-evalutation: 04/30/20 16:44 Patient resting comfortably not showing any signs of distress at this time. 04/30/20 16:53 Discussed with patient during COVID testing in regards to having diarrhea nausea vomiting gastroenteritis in the face of the pandemic were aware with COVID-19. Patient declined to have a COVID test today. Patient believes she ate food at [employer] and became ill at that time. - Vital Signs Vital signs: Temp Pulse Resp BP Pulse Ox 99.1 F 114 H 14 146/75 H 97 04/30/20 07:00 04/30/20 07:00 04/30/20 15:50 04/30/20 15:50 04/30/20 15:50 04/30/20 16:44 Vital signs stable. Heart rate 106 temp 99 1. - Laboratory Result Diagrams: 04/30/20 09:58 04/30/20 08:45 Laboratory results interpreted by me: 04/30/20 04/30/20 08:45 09:58 Hgb 15.8 H RDW 14.4 H BUN 3 L Glucose 130 H AST 115 H ALT 152 H Laboratories unremarkable except for noted glucose of 130 AST and ALT about 3 times normal. Patient has fatty liver on CT scan. - Diagnostic Test Radiology reviewed: Image reviewed, Reports reviewed Radiology results interpreted by me: 04/30/20 16:47 Acute abdominal series plain film x-ray shows no acute process. CT abdomen pelvis shows fatty liver, an 11 mm splenic artery aneurysm otherwise no other aneurysm seen. Discharge - Discharge Clinical Impression: Gastroenteritis, Splenic artery aneurysm, Nausea Condition: Stable Disposition: HOME, SELF-CARE Instructions: Gastroenteritis (adult) ([facility]) Prescriptions: Metronidazole [Flagyl 500 mg Tablet] 500 mg PO BID #10 tablet Ondansetron [Zofran Odt 4 mg Tablet] 1 - 2 tab PO Q4H PRN #15 tab.rapdis PRN Reason: For Nausea/Vomiting Referrals: NATE JASON MD [Primary Care Provider] - Follow up as needed I personally performed the services described in the documentation, reviewed and edited the documentation which was dictated to the scribe in my presence, and it accurately records my words and actions.
[2020-04-30 17:31] VITALS: BP 123/96
== END 2020-04-30 17:32 | disposition home or self-care (01) ==
LOC: ER 06:53
DX: K52.9 Noninfective gastroenteritis and colitis, unspecified (principal); I72.8 Aneurysm of other specified arteries; R11.0 Nausea; E66.01 Morbid (severe) obesity due to excess calories; I10 Essential (primary) hypertension; J44.9 Chronic obstructive pulmonary disease, unspecified; E11.9 Type 2 diabetes mellitus without complications; Z90.49 Acquired absence of other specified parts of digestive tract
CPT/HCPCS: 99285; 96361; 96374; 96375; 36415; 87045; 87205; 87209; 83690; 87177; 84703; 85025; 80053; 87324; 87449; 74022; 74177; J2405; J7030; S0028

== ENCOUNTER → 2020-05-12 | Outpatient (CLI) | payer MEDICARE ==
--- NOTE | 2020-05-12 14:03 | RADIOLOGY REPORT (SQ) ---
EXAM DESCRIPTION: CTA ABDOMEN/PELVIS W WO IMAGES COMPLETED DATE/TIME: 05/12/2020 12:37 pm REASON FOR STUDY: I72.8 ANEURYSM OF OTHER SPECIFIED ARTERIES I72.8 ANEURYSM OF OTHER SPECIFIED MELANIE TEJAS COMPARISON: Abdomen pelvis 04/30/2020 TECHNIQUE: CT scan of the abdomen and pelvis performed with intravenous contrast using helical scann ing technique with dynamic intravenous contrast injection. Images reviewed with lung, soft tissue, an d bone windows. Reconstructed coronal and sagittal MPR images reviewed. All images stored on PACS. Advanced 3D imaging as volume rendering, MIPS, SSD performed? yes All CT scanners at this facility use dose modulation, iterative reconstruction, and/or weight based d osing when appropriate to reduce radiation dose to as low as reasonably achievable (ALARA). [facility]: Dose Right [facility]: CareDose [facility]: Dose Right [facility]: Teradose 4D [facility]: [employer] CONTRAST TYPE AND DOSE: contrast/concentration: Isovue 350.00 mmol/ml; Total Contrast Delivered: 100 .0 ml; Total Saline Delivered: 45.0 ml RENAL FUNCTION: GFR > 60. LIMITATIONS: None. FINDINGS: AORTA AND VESSELS: 9 mm calcified disc splenic artery aneurysm. No aortic aneurysm. No di ssection. Renal arteries, SMA, celiac without stenosis. LUNG BASES: No significant findings. No nodules or infiltrates. LIVER: Steatosis. No masses or dilated ducts. SPLEEN: Normal size. No focal lesions. PANCREAS: No masses. No significant calcifications. No adjacent inflammation or peripancreatic fluid collections. Pancreatic duct not dilated. GALLBLADDER: No identified stones by CT criteria. No inflammatory changes to suggest cholecystitis. ADRENAL GLANDS: No significant masses or asymmetry. RIGHT KIDNEY AND URETER: No mass, calculi or urinary tract obstruction. LEFT KIDNEY AND URETER: No mass, calculi or urinary tract obstruction. RETROPERITONEUM: No retroperitoneal adenopathy, hemorrhage or masses. BOWEL AND PERITONEAL CAVITY: No masses or inflammatory changes. No free fluid or peritoneal masses. APPENDIX: Normal. ABDOMINAL WALL: No masses. No hernias. BONY STRUCTURES: No significant or acute findings. 3-D IMAGING: Confirms the above findings. OTHER: No other significant finding. IMPRESSION: Small calcified splenic artery aneurysm. COMMENT: Spontaneous rupture is rare when less than 2 cm. Risk increases in patients with portal h ypertension. 1 year follow-up is recommended. TECHNICAL DOCUMENTATION: JOB ID: [id number] Quality ID # [id number]: Final reports with documentation of one or more dose reduction techniques (e.g., Au tomated exposure control, adjustment of the mA and/or kV according to patient size, use of iterative reconstruction technique) 2010 [employer]- All Rights Reserved Reading location - IP/workstation name: [email or web address]
== END ==
LOC: RAD 12:10
PROVIDERS: ATTEND Physician Assistant
DX: I72.8 Aneurysm of other specified arteries (principal)
CPT/HCPCS: 74174

== ENCOUNTER → 2020-08-27 | Outpatient (CLI) | payer MEDICARE, OTHER ==
[2020-08-27 16:43] VITALS: BP 126/58
--- NOTE | 2020-08-27 16:43 | ER RDC ASSESSMENT REPORT ---
Intake - In the Last 14 days Have you traveled outside [place]?: No Have you been in close contact with someone CONFIRMED: Yes Worked in Healthcare?: No - Symptoms Subjective Fever([place] feverish): No Chills: No Muscule Aches: No Runny Nose: No Sore Throat: No Cough (New or worsening chronic cough): No Shortness of breath: No Nausea or Vomiting: No Headache: No Abdominal Pain: No Diarrhea(3 or more loose stools in last 24 hours): No - Do you have any of the following Chronic lung disease: Asthma or emphysema or COPD: Yes Chronic Lung Disease Comment: Patient is a well-appearing 50-year-old female, who presents today for COVID-19 screening. Cystic Fibrosis: No Diabetes: Yes Diabetes Comment: Patient reports history of type 2 diabetes. High Blood Pressure: No Cardiovascular Disease: No Chronic Kidney Disease: No Chronic Liver Disease: No Chronic blood disorder like Sickle Cell Disease: No Weak immune system due to disease or medication: No Neurologic condition that limits movement: No Developmental delay - Moderate to Severe: No Recent (within past 2 weeks) or current : No Morbid Obesity (>100 pounds over ideal weight): Yes Other Comment: Patient reports history of depression and PTSD. - Objective Temperature: 98.4 F Pulse Rate: 78 Respiratory Rate: 18 Blood Pressure: 126/58 O2 Sat by Pulse Oximetry: 92 Objective: Patient is a well-appearing 50-year-old female, who presents today for COVID-19 screening. Disposition: Home; Selfcare General - General Stated Complaint: COVID-19 screening Mode of Arrival: Ambulatory Information source: Patient Notes: The patient was evaluated during the global COVID-19 pandemic. That diagnosis was suspected/considered upon initial presentation. Their evaluation, treatment, and testing was consistent with current guidelines for patients who present with complaints or symptoms that may be related to COVID-19. Patient reports having close contact exposure to a COVID-19 lab confirmed positive individual. - HPI Patient complains to provider of: Asymptomatic no complaints Quality of pain: No pain Severity: None Pain Level: Denies Associated symptoms: None Exacerbated by: Denies Relieved by: Denies Similar symptoms previously: No Recently seen / treated by doctor: No - Related Data Allergies/Adverse Reactions: clarithromycin [From Biaxin] Allergy (Mild, Verified 04/30/20 07:28) Generalized rash Penicillins Allergy (Mild, Verified 04/30/20 07:28) amoxicillin [From Augmentin] Adverse Reaction (Mild, Verified 04/30/20 07:28) clavulanic acid [From Augmentin] Adverse Reaction (Mild, Verified 04/30/20 07:28) Past Medical History - General Information source: Patient - Social History Smoking Status: Never Smoker Cigarette use (# per day): No Chew tobacco use (# tins/day): No Smoking Education Provided: No Frequency of alcohol use: None Drug Abuse: None Occupation: Retired Lives with: Family Family History: Arthritis, CAD, CVA, DM, Hyperlipidemia, Hypertension, Malignancy, Thyroid Disfunction Patient has suicidal ideation: No Patient has homicidal ideation: No - Past Medical History Cardiac Medical History: Reports: Hx Hypertension Denies: Hx Coronary Artery Disease, Hx Heart Attack Pulmonary Medical History: Reports: Hx Asthma, Hx COPD Denies: Hx Bronchitis, Hx Pneumonia Neurological Medical History: Denies: Hx Cerebrovascular Accident, Hx Seizures Endocrine Medical History: Reports: Hx Diabetes Mellitus Type 2 Renal/ Medical History: Denies: Hx Peritoneal Dialysis GI Medical History: Reports: Hx Gastroesophageal Reflux Disease Musculoskeletal Medical History: Denies Hx Arthritis, Reports Hx Musculoskeletal Trauma Psychiatric Medical History: Reports: Hx Anxiety, Hx Depression, Hx Post Traumatic Stress Disorder Past Surgical History: Reports: Hx Cardiac Catheterization - 01/17/2017, Hx Section, Hx Cholecystectomy, Hx Orthopedic Surgery - LEFT SHOULDER Physical Exam - General General appearance: Appears well In distress: None Notes: PHYSICAL EXAMINATION: GENERAL: Well-appearing with No Acute Distress noted. HEAD: Atraumatic, Normocephalic. EYES: Sclera anicteric, Conjunctiva are pink and moist. ENT: Nares patent. Moist mucous membranes. NECK: Normal range of motion, supple without lymphadenopathy. LUNGS: CTAB and equal. No wheezes rales or rhonchi. HEART: Regular rate and rhythm without murmurs. ABDOMEN: Soft, nontender, normal bowel sounds, no guarding. EXTREMITIES: Normal range of motion, no pitting edema. No cyanosis. BACK: No midline or CVA tenderness. No step-off or deformity. NEUROLOGICAL: Cranial nerves grossly intact. Normal speech. Normal gait. PSYCH: Calm, Cooperative, and answers questions appropriately. Normal mood and affect. SKIN: Warm, Dry, Normal color and Turgor, No obvious lesions or rash noted. Diagnostic Results Laboratory Results: Patient advised at this time they are considered a Person Under Investigation (PUI) for the COVID-19 Coronavirus. They have been made aware it is currently taking 3 to 5 days to receive their results. Patient advised The [facility] Department will call to notify them of a POSITIVE result, and an [facility] staff nurse icu resource team will call to notify them of a NEGATIVE result. Patient Education/Counseling Counseling/Education: Patient presents with upper respiratory symptoms worrisome for possible COVID- 19. Patient does not have symptoms worrisome as an emergency such as difficulty breathing, shortness of breath, chest pain, pressure, confusion or cyanosis. Patient appears suitable for discharge. Patient's vital signs are stable and patient is nontoxic in appearance. Good return precautions have been discussed with patient, patient verbalized understanding and is agreeable with discharge plan of care at this time. Patient provided COVID-19 discharge instructions to include: As a person under investigation for COVID-19, the [place] department of Health and Human Services, division of public health advises you to adhere to the following guidance until your test results are reported to you. If your test result is positive, you will receive additional information from your provider and your local health department at that time. Remain at home until you are cleared by the health provider or public health authorities. Keep a log of visitors to your home, notify any visitors to your home of your isolation status. If you plan to move to a new address or leave the formerly [facility], notify the local health department in your County. Call your doctor or seek care if you have an urgent medical need. Before seeking medical care, call ahead to get instructions from the provider before arriving at the medical office clinic or hospital. Notify them that you are being tested for the virus that causes COVID-19 so that arrangements can be made, as necessary, to prevent transmission to others in the healthcare setting. Next, notify the local health department in your county. If a medical emergency arises and you need to call 911, inform dispatch and the first responders that you are being tested for the virus that causes COVID-19. Next, notify the local health department in your county. Guidance for worsening S/SX: For worsening symptoms, patient has been advised to contact their Primary Care Provider, or go to the nearest Emergency Department. RDC Discharge - Discharge Clinical Impression: COVID-19 Screening URI (upper respiratory infection) Qualifiers: URI type: unspecified URI Qualified Code(s): J06.9 - Acute upper respiratory infection, unspecified Condition: Stable Disposition: Home; Selfcare
== END ==
LOC: RDC 13:24
PROVIDERS: ATTEND Nurse Practitioner Family
DX: Z20.822 Contact with and (suspected) exposure to COVID-19 (principal); E11.9 Type 2 diabetes mellitus without complications; I10 Essential (primary) hypertension; J44.9 Chronic obstructive pulmonary disease, unspecified; K21.9 Gastro-esophageal reflux disease without esophagitis; E66.01 Morbid (severe) obesity due to excess calories; F41.9 Anxiety disorder, unspecified; F32.9 Major depressive disorder, single episode, unspecified; F43.10 Post-traumatic stress disorder, unspecified; Z88.0 Allergy status to penicillin; Z88.1 Allergy status to other antibiotic agents; Z88.8 Allergy status to other drugs, medicaments and biological substances
CPT/HCPCS: 99202; U0003; G0463; C9803; 87635; 99211